=== PATIENT | male | born 1945 | race Caucasian/White ===

== ENCOUNTER 2017-08-28 22:35 | Inpatient (IN) | payer OTHER ==
[~2017-08-28] VITALS: Ht 177.8 cm; Wt 65.2 kg
--- NOTE | 2017-08-28 22:42 | ED GENERAL ADULT ---
History of Present Illness General Chief Complaint: General Adult Stated Complaint: BIBA FOR WEAKNESS Source: patient, family, old records, EMS Exam Limitations: no limitations Vital Signs & Intake/Output Vital Signs & Intake/Output Vital Signs Date Time Temp Pulse Resp B/P B/P Pulse O2 O2 Flow FiO2 Mean Ox Delivery Rate 08/28 2300 97.8 56 16 149/87 08/28 2237 97.8 56 16 149/87 97 Room Air Allergies Coded Allergies: NO KNOWN ALLERGIES (12/21/11) Triage Nurses Notes Reviewed? yes HPI: Patient brought in by ambulance for evaluation of frequent falls. Patient has fallen 4 times over the past 2 days. Patient states he just feels off balance. Patient is a chronic drinker and he drinks 8-10 beers daily however has not had anything to drink in the past day. Patient denies any nausea or vomiting. Patient denies any headache. There is no blurry vision. There is no nausea or vomiting. Family has noticed that he is slightly more confused than normal over the past few days. Past History Travel History Traveled to [place] past 21 day No Medical History Any Pertinent Medical History? see below for history Cardiovascular: hypertension Psychiatric: depression Surgical History Surgical History: non-contributory Psychosocial History Who do you live with Family What is your primary language Faroese Tobacco Use: Quit >30 days ago ETOH Use: 8-10 BEERS DAILY Illicit Drug Use: denies illicit drug use Family History Hx Contributory? No Review of Systems Review of Systems Constitutional: Reports: see HPI, weakness. EENTM: Reports: no symptoms. Respiratory: Reports: no symptoms. Cardiovascular: Reports: no symptoms. GI: Reports: no symptoms. Genitourinary: Reports: no symptoms. Musculoskeletal: Reports: no symptoms. Skin: Reports: no symptoms. Neurological/Psychological: Reports: see HPI, confusion. Hematologic/Endocrine: Reports: no symptoms. Immunologic/Allergic: Reports: no symptoms. All Other Systems: Reviewed and Negative Physical Exam Physical Exam General Appearance: well developed/nourished, alert, awake, anxious, moderate distress Head: evidence of injury, ecchymosis Eyes: Bilateral: PERRL, EOMI. Ears, Nose, Throat: normal pharynx, normal ENT inspection, hearing grossly normal Neck: normal inspection, supple, full range of motion Respiratory: normal breath sounds, chest non-tender, no respiratory distress, lungs clear Cardiovascular: regular rate/rhythm, normal peripheral pulses Gastrointestinal: normal bowel sounds, soft, non-tender, no organomegaly Back: normal inspection, normal range of motion Extremities: normal inspection, normal capillary refill, normal range of motion, ECCHYMOSIS Neurologic/Psych: no motor/sensory deficits, awake, alert, oriented x 3 Skin: intact, warm/dry Core Measures ACS in differential dx? No CVA/TIA Diagnosis: No Sepsis Present: No Sepsis Focused Exam Completed? No Progress Differential Diagnoses I considered the following diagnoses in my evaluation of the patient: [ICH, cervical fracture, pneumonia, pneumothorax, electrolyte abnormality, rhabdomyolysis, UTI, alcohol withdrawal] Plan of Care: Orders Procedure Date/time Status LACTIC ACID 08/29 0141 Active Admit to inpatient 08/28 2334 Active Add-on Test (ER Only) 08/28 232 Active CIWA 08/28 224 Active URINE DRUGS OF ABUSE 08/28 2240 Active URINALYSIS 08/28 224 Active TROPONIN LEVEL 08/28 224 Complete LACTIC ACID 08/28 224 Complete ETHANOL 08/28 2241 Complete COMPREHENSIVE METABOLIC PANEL 08/28 2240 Complete CREATINE PHOSPHOKINASE 08/28 2240 Complete CBC WITHOUT DIFFERENTIAL 08/28 2240 Complete EKG 08/28 2240 Active Current Medications Sig/Alissa Start time Last Medication Dose Stop Time Status Admin Sodium Chloride 1,000 ML BOLUS ONE 08/280 UNVr (Normal Saline 0.9%) 08/29 0029 Laboratory Tests 08/28/17 2254: Anion Gap 17 H, Estimated GFR > 60, BUN/Creatinine Ratio 35.7 H, Glucose 126 H, Lactic Acid 2.4 H, Calcium 9.5, Total Bilirubin 3.8 H, AST 46, ALT 44, Alkaline Phosphatase 65, Creatine Kinase 142, Troponin I 0.02, Total Protein 7.2 , Albumin 4.3, Globulin 2.9, Albumin/Globulin Ratio 1.5, CBC w Diff NO MAN DIFF REQ, RBC 5.23, MCV 96.4 H, MCH 33.1 H, MCHC 34.3, RDW 12.1, MPV 8.2, Gran % 77.5 H, Lymphocytes % 10.3 L, Monocytes % 11.6 H, Eosinophils % 0.5, Basophils % 0.1, Absolute Granulocytes 8.7 H, Absolute Lymphocytes 1.2, Absolute Monocytes 1.3 H, Absolute Eosinophils 0.1, Absolute Basophils 0, Serum Alcohol < 10.0 Diagnostic Imaging: Viewed by Me: Radiology Read, CT Scan. Discussed w/RAD: Radiology Read, CT Scan. Radiology Impression: PATIENT: KVNG TOMAS PRESENT AGE: 72 PATIENT ACCOUNT NO: [id number] : 44 LOCATION: [facility] ORDERING PHYSICIAN: Sukhwinder Brown MD SERVICE DATE: 08/28/17 EXAM TYPE: CAT - CT CERV SPINE WO IV CONTRAST; CT HEAD WO IV CONTRAST EXAMINATIONS: CT HEAD WITHOUT CONTRAST AND CT CERVICAL SPINE WITHOUT CONTRAST CLINICAL INFORMATION: Trauma. Frequent falls. COMPARISON: September 06, 2008. TECHNIQUE: Contiguous helical images of the brain were obtained without IV contrast. Contiguous helical images of the cervical spine were obtained without IV contrast. Multiplanar reconstructions were performed. DLP: 993 mGy-cm. FINDINGS: There are no pathologic extra-axial fluid collections. The lateral, third, fourth ventricles are prominent, though age-appropriate and concordant with the appearance of the sulci. There is no evidence for acute intraparenchymal hemorrhage or infarct. There is mild periventricular low-attenuation indicative small vessel disease. There is neither mass nor mass effect. There is no shift of midline structures. The paranasal sinuses and mastoid air cells are clear. There are no osseous lesions. The cervical vertebra are in normal alignment. There is mild disc height loss at C5/C6 and C6/C7 with anterior osteophyte formation. Disc heights and vertebral heights are otherwise well-preserved. There are no fractures. There is no prevertebral soft tissue swelling. There is no cervical lymphadenopathy. The visualized lung apices are clear. IMPRESSION: No evidence for acute intracranial injury. Age-appropriate appearance of the brain. No evidence for acute injury to the cervical spine. Mild lower cervical spine degenerative change. DICTATED BY: Kvng Whittington MD DATE/TIME DICTATED:08/28/172321 COOK BOX FILLER:MATILDA DATE/TIME TRANSCRIBED:08/28/172321 CONFIDENTIAL, DO NOT COPY WITHOUT APPROPRIATE AUTHORIZATION. <Electronically signed in Other Vendor System> SIGNED BY: Kvng Whittington MD 08/28/172328 CXR Impression: PATIENT: KVNG TOMAS PRESENT AGE: 72 PATIENT ACCOUNT NO: [id number] : 44 LOCATION: [facility] ORDERING PHYSICIAN: Sukhwinder Brown MD SERVICE DATE: 08/28/17 EXAM TYPE: RAD - XRY-CHEST XRAY, TWO VIEWS EXAMINATION: XR CHEST CLINICAL INFORMATION: Weakness. COMPARISON : Chest x-ray 09/06/2008 TECHNIQUE: Single view chest AP 11:07 PM FINDINGS: There is no nonunited fracture of the distal left clavicle. This is unchanged since prior chest x-ray. There is no acute abnormality. Lungs are clear. No pulmonary vascular congestion or pleural effusion. The cardiac and mediastinal contours are normal. The heart size is normal. IMPRESSION: No acute abnormality of chest. DICTATED BY: Gaurav Montes De Oca MD DATE/TIME DICTATED:08/28/172322 COOK BOX FILLER:MATILDA DATE/TIME TRANSCRIBED:08/28/172322 CONFIDENTIAL, DO NOT COPY WITHOUT APPROPRIATE AUTHORIZATION. <Electronically signed in Other Vendor System> SIGNED BY: Gaurav Montes De Oca MD 08/28/172327 Initial ED EKG: NSR, LBBB, nonspecific ST T wave chg Prior EKG: unchanged Departure Departure Disposition: STILL A PATIENT Condition: Guarded Clinical Impression Primary Impression: Hyponatremia Referrals: Sourav GEORGES,Christian Long (PCP/Family) Departure Forms: Customer Survey General Discharge Information Admission Note Spoke With: Vickie Quintanilla MD Documentation of Exam: Documentation of any treatments & extenuating circumstances including Concerns Regarding Discharge (functional status, medication knowledge or non-compliance, living conditions, etc.) that warrant an admission rather than observation: [ICU admission, free water restriction, renal consultation, physical therapy consultation, monitor CIWA score] Critical Care Note Critical Care Note Critical Care Time: mins: (90 MIN)
[2017-08-28 23:00] VITALS: BP 149/87
[2017-08-28 23:01] LABS: ABSOLUTE BASOPHIL COUNT 0 /CUMM (0.0-0.2); ABSOLUTE EOSINOPHIL COUNT 0.1 /CUMM (0.0-0.7); ABSOLUTE GRANULOCYTE CT 8.7 /CUMM (1.4-6.5); ABSOLUTE LYMPH COUNT 1.2 /CUMM (1.2-3.4); ABSOLUTE MONOCYTE COUNT 1.3 /CUMM (0.10-0.60); BASOPHIL % 0.1 % (0.0-2.0); EOSINOPHIL % 0.5 % (0-5); GRANULOCYTE % 77.5 % (42.2-75.2); HEMATOCRIT 50.5 % (42-52); MEAN CORPUSCULAR HGB 33.1 PG (27.0-31.0); MEAN CORPUSCULAR HGB CONC 34.3 G/DL (33.0-37.0); MEAN CORPUSCULAR VOLUME 96.4 FL (80.0-94.0); MEAN PLATELET VOLUME 8.2 FL (7.4-10.4); PLATELET COUNT 206 /CUMM (130-400); RBC DISTRIBUTION WIDTH 12.1 % (11.5-14.5); RED BLOOD CELL CT 5.23 /CUMM (4.70-6.10); WHITE BLOOD CELL COUNT 11.3 /CUMM (4.8-10.8)
--- NOTE | 2017-08-28 23:28 | RADIOLOGY REPORT ---
EXAMINATION: XR CHEST CLINICAL INFORMATION: Weakness. COMPARISON: Chest x-ray 09/06/2008 TECHNIQUE: Single view chest AP 11:07 PM FINDINGS: There is no nonunited fracture of the distal left clavicle. This is unchanged since prior chest x-ray. There is no acute abnormality. Lungs are clear. No pulmonary vascular congestion or pleural effusion. The cardiac and mediastinal contours are normal. The heart size is normal. IMPRESSION: No acute abnormality of chest.
--- NOTE | 2017-08-28 23:29 | CT SCAN REPORT ---
EXAMINATIONS: CT HEAD WITHOUT CONTRAST AND CT CERVICAL SPINE WITHOUT CONTRAST CLINICAL INFORMATION: Trauma. Frequent falls. COMPARISON: September 06, 2008. TECHNIQUE: Contiguous helical images of the brain were obtained without IV contrast. Contiguous helical images of the cervical spine were obtained without IV contrast. Multiplanar reconstructions were performed. DLP: 993 mGy-cm. FINDINGS: There are no pathologic extra-axial fluid collections. The lateral, third, fourth ventricles are prominent, though age-appropriate and concordant with the appearance of the sulci. There is no evidence for acute intraparenchymal hemorrhage or infarct. There is mild periventricular low-attenuation indicative small vessel disease. There is neither mass nor mass effect. There is no shift of midline structures. The paranasal sinuses and mastoid air cells are clear. There are no osseous lesions. The cervical vertebra are in normal alignment. There is mild disc height loss at C5/C6 and C6/C7 with anterior osteophyte formation. Disc heights and vertebral heights are otherwise well-preserved. There are no fractures. There is no prevertebral soft tissue swelling. There is no cervical lymphadenopathy. The visualized lung apices are clear. IMPRESSION: No evidence for acute intracranial injury. Age-appropriate appearance of the brain. No evidence for acute injury to the cervical spine. Mild lower cervical spine degenerative change.
[2017-08-28] MEDS ORDERED: PAROXETINE HCL20 M1 PO (23:39)
[2017-08-28] MEDS ORDERED: METOPROLOL SUC100 M2 PO (23:40)
[2017-08-28] MEDS ORDERED: VALSARTAN-HCTZ1 EAC2 PO (23:40)
[2017-08-28] MEDS ORDERED: BUSPIRONE HCL15 M1 PO (23:40)
[2017-08-28] MEDS ORDERED: LORAZEPAM0.5 M1 PO (23:40)
--- NOTE | 2017-08-28 23:54 | History & Physical ---
See Addendum Murali Barfield 08/28/17 2345: General Information and HPI MD Statement: I have seen and personally examined CONTRERAS TOMAS and documented this H&P. The patient is a 72 year old M who presented with a patient stated chief complaint of generalized weakness and confusion []. Source of Information: patient, family, old records, EMS History of Present Illness: 72 YO M, smoker (5 cigraettes/d for 50 yrs) with PMH of alcohol abuse, HTN and depression was brought to ED with chief complain of frequent fall in last two days and generalized weakness. Patient's friends and family was around him who helped him to give the information. According to the patient he was in his usual state of health 2 days ago when he started noticed generalized weakness and he fell down couple of times in his apartment. Patient reported that he has multiple bruises on both arms and also on the right foot. Patient's family friend and his landlord he was on the bedside who told that he helped him getting into the bed. He found him falling on this floor with blood on the clothes. According to the family for patient looks more confused. Patient reported that he is drinking 810 beers everyday for a long time. His last drink was 20 hours before. Patient reported that his appetite has been decreased and he didn't eat or drink anything for last 2 days. Also reported that he saw his primary care physician Dr. Donaldson on 23 of August who changed his antihypertensive medications and prescribed him paroxetine for depression. 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 Patient is independent in walking as he is not using any cane or walker. Patient denied chest pain, palpitation, nausea, vomiting, lightheadedness, abdominal pain, diarrhea, constipation, numbness, tingling, loss of consciousness, seizures, blurry vision, tremors and dysuria. According to the patient 1 time he tried to quit alcohol and was admitted in the hospital for alcohol detox. He never been admitted to the hospital protocol and if seizures or never been admitted to ICU or intubated for alcohol withdrawal. Last time he was admitted to the hospital in 2011 and 2008 with hyponatremia and was treated for it. ED course: Vitals: Temperature 97.8, pulse 56, respiratory rate 16, blood pressure 149/87, oxygen saturation 97% on room air Labs: WBC count 11.3, hemoglobin 17.3, hematocrit 50.5, platelet 206, sodium 110 , potassium 3.6, BUN 25, creatinine 0.7, chloride 69, bicarbonate 24, anion gap 17, BUNs/creatinine ratio 35.7, glucose 126, lactic acid 2.4, total bilirubin 3.8, AST 46, ALT 44, alkaline phosphatase 65, creatinine kinase 142, troponin 0.02, albumin 4.3, globulin 2.9, total primary 7.2 Patient received 1 L of normal saline in ED Allergies/Medications Allergies: Coded Allergies: NO KNOWN ALLERGIES (12/21/11) Home Med list Buspirone HCl 15 MG TABLET 1 TAB PO BID MENTAL HEALTH (Reported) Lorazepam 0.5 MG TABLET 1 TAB PO DAILY NEEDED ANXIETY (Reported) Metoprolol Succinate 100 MG TAB.ER.24H 1 TAB PO DAILY HEART HEALTH (Reported) Paroxetine HCl 20 MG TABLET 1 TAB PO DAILY MENTAL HEALTH (Reported) Valsartan/Hydrochlorothiazide (Valsartan-Hctz 160-25 MG Tab) 160 MG-25 MG TABLET 1 TAB PO DAILY HEART HEALTH (Reported) Past History Travel History Traveled to [facility] past 21 day No Medical History Cardiovascular: hypertension Psychiatric: depression Surgical History Surgical History: non-contributory Past Family/Social History Psychosocial History ETOH Use: 8-10 BEERS DAILY Illicit Drug Use: denies illicit drug use Review of Systems Review of Systems Constitutional: Reports: weakness. Denies: chills, fever. EENTM: Reports: no symptoms. Cardiovascular: Denies: chest pain, edema, palpitations, syncope. Respiratory: Denies: cough, orthopnea, short of breath, sputum production, wheezing. GI: Denies: abdominal pain, constipation, diarrhea, nausea, bloody stool, vomiting. Genitourinary: Denies: discharge, hematuria, pain. Musculoskeletal: Reports: see HPI. Skin: Reports: erythema, lesions. Neurological/Psychological: Reports: confusion. Denies: anxiety, depressed, headache, numbness, tingling, tremors. Hematologic/Endocrine: Reports: bruising. Exam & Diagnostic Data Last 24 Hrs of Vital Signs/I&O Vital Signs Date Time Temp Pulse Resp B/P B/P Pulse O2 O2 Flow FiO2 Mean Ox Delivery Rate 08/28 2300 97.8 56 16 149/87 08/28 2237 97.8 56 16 149/87 97 Room Air Intake & Output 08/29 0800 08/29 0000 08/28 1600 Intake Total 1000 Output Total Balance 1000 Intake, IV 1000 Patient 135 lb Weight Physical Exam General Appearance Alert, Cooperative, No Acute Distress Skin No Rashes Skin Temp/Moisture Exam: Warm/Dry Sepsis Skin Exam (color): Normal for Ethnicity HEENT Atraumatic, PERRLA, EOMI Neck Supple Cardiovascular Normal S1, Normal S2 Lungs Clear to Auscultation, Normal Air Movement Abdomen Soft, No Tenderness Neurological Normal Speech, Strength at 5/5 X4 Ext, Normal Tone, Sensation Intact Extremities No Edema, Bruises of right arm and hand, bruises on left arm, Right foot swelling and redness Assessment/Plan Assessment: 72 YO M, smoker (5 cigraettes/d for 50 yrs) with PMH of alcohol abuse, HTN and depression was brought to ED with chief complain of frequent fall in last two days and generalized weakness. Patient's friends and family was around him who helped him to give the information. We will admit the patient in ICU to treat for hyponatremia. Hyponatremia: -Possibly due to SIADH that can be induced with Paroxetine or could be multifactorial due to SIADH and dehydration as patient was using diuretics and he had low oral intake. 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 -Gentle IV hydration with normal saline. We will check his sodium level in 4 hours and if it's dropped with IV hydration then we will treat him for SIADH with fluid restriction. -We will check sodium level after every 4 hours. Na correction should not be more than 8-10 mEQ in next 24 hours. -We will avoid diuretics and paroxetine -Patient couldn't get with fluid restriction then we will do 3% normal saline. -Seizure precaution -Nephrology consult Alcohol detox: -We will keep the patient on CIWA protocol -Ativan 2mg every 6 hourly -Folic acid and vitamin B12 supplementation -Thiamine supplementation -Seizure precautions -Fall precaution -Social consult and PT eval for gait instability Hyperbilirubinemia: -Possibly due to alcohol abuse, considering normal liver enzymes may has compensated liver cirrhosis due to alcohol use. -We will check bili level again. -Upper quadrent USG can be done to look for his liver. Elevated hemoglobin and hematocrit: -Possibly due to secondary polycythemia considering his long smoking history. Right foot swelling: -Patient has right foot swelling and redness after the fall -X-ray right foot to rule out any fracture History of anxiety and depression: -Continue Ativan when necessary -Continue buspiron for depression History of hypertension: -Continue metoprolol and losartan DVT prophylaxis: Mechanical and subcutaneous heparin Code status: Full code As Ranked By This Provider Problem List: 1. Hyponatremia 2. Alcohol abuse Core Measures/Misc (11/19) Acute Coronary Syndrome ACS Diagnosis: No Congestive Heart Failure Congestive Heart Failure Diagnosis No Cerebrovascular Accident CVA/TIA Diagnosis: No VTE (View Protocol) VTE Risk Factors Age>40 No Mechanical VTE Prophylaxis d/t N/A MechProphylax Ordered No VTE Pharm Prophylaxis d/t NA PharmProphylax ordered Sepsis (View protocol) Sepsis Present: No If YES complete Sepsis Event Note If YES complete Sepsis Event Note Garo Mae MD 08/29/17 0003: Core Measures/Misc (11/19) Sepsis (View protocol) If YES complete Sepsis Event Note If YES complete Sepsis Event Note Resident Review Statement Other Findings: History of Present Illness 72 year old man with past medical history of EtOH abuse, hypertension, depression, and panic attacks brought in by ambulance for altered mental status and multiple mechanical falls. Patient was previoulsy admitted to [facility] in 2008 for similar complaints where he was admitted to the ICU for profound hyponatremia of 119, K 3.0, Plt 65 where nephro consult was placed and he was placed on 1200 cc fluid restriction and treated for SIADH versus beer potomania which was slowly corrected. Patient has been reported progressively more confused over the past several days. He has had multiple mechanical falls resulting in minor injuries. He has had decreased PO intake and has not been taking his medications. He was found by his landlord with blood all over the apartment. He reported profound weakness and nausea. Review of Systems He otherwise denies any fever, chills, blurred / double vision, chest pain, palpitations, heartburn, shortness of breath, cough, nausea, vomiting, diarrhea, constipation, urinary symptoms. Social history Patient reportedly drinks 8-14 beers per day for the past 50 years, last drink was around 20 hours prior to admission. He smokes on average 5 cigarettes per day now but in the past smoked up to 2 packs per day. He reportedly does not use any recreational drugs such as marijuana or cocaine. He lives alone in an "in-law" apartment attached to a friend's home and is at baseline independent in all ADLs/IADLs. Objective Vitals Temp 97.8, HR 56, RR 16, BP 149/87, spO2 97% on room air Physical Exam -General: unkempt elderly man in no acute distress -HEENT: Scattered minor traumas without deformity, PERRLA, EOMI, anicteric sclera, moist mucous membrane -Neck: Supple, no JVD, trachea midline, no accessory respiratory muscle use -Cardio: Normal S1/S2 without murmurs/gallops/rubs; regular rate and rhythm -Pulm: Scattered rhonchi with expiratory wheezing -Abdomen: Soft, nontender, nondistended, bowel sounds intact -Neuro: Awake and minimally alert but slow to respond with inappropriate responses, cranial nerves II through XII grossly intact, spontaneous movement of all 4 extremities -Extremities: Normal pulses, ecchymotic area to right ankle without deformity, strength 5/54 Labs / Imaging / Studies -CBC: WBC 11.3, HGB 17, HCT 50.3, PLT 206 -BMP: Na 110, K 3., CL 69, CO2 24, BUN 25, Creatinine 0.7, AG 17, Glu 126 -LFT: T. Bili 3.8, otherwise normal -Misc: Lactic 2.4, Troponin negative, EtOH < 10 -CXR: unremarkable -EKG: NSR -CT Head / C-spine without IV Contrast: * No evidence for acute intracranial injury. Age-appropriate appearance of the brain. No evidence for acute injury to the cervical spine. Mild lower cervical spine degenerative change. Assessment 72 year old man with multiple medical problems significant for alcohol abuse brought in by ambulance for multiple falls and altered mental status. Presently patient appears somewhat confused but in no acute distress. Vital signs remain within normal limits. Physical exam reveals an elderly man with poor hygiene with various sites of small injury around his body at impact areas from his mechanical falls and an otherwise unremarkable cardiopulmonary examination; his right ankle looks ecchymotic and bruised without any gross deformity. Labs are significant for WBC 11.3, hemoglobin 17.3, hematocrit 50.3, sodium 110, potassium 3.6, lactic acid 2.4, anion gap 17; troponin and EtOH levels are negative. EKG demonstrated a normal sinus rhythm with a nonspecific interventricular conduction delay. CT head and cervical spine was negative for any acute intracranial injury or cervical spine injury. Patient received 1 L of normal saline in the ED. Clinically patient appears to have severe hyponatremia likely multifactorial in etiology secondary to SIADH and beer potomania and possibly paroxetine as it is a new med. Patient's gait instability is most likely secondary to these findings for which she will be evaluated with physical therapy assessment and monitored closely as he is a fall risk. Patient is at high risk for for central pontine myelinolysis given his multiple medical comorbidities and should have his sodium corrected very slowly. Patient is being admitted to the intensive care unit for serial serum chemistries, fluid restriction, nephrology consultation, and CIWA scoring with Ativan scheduled doses and vitamin supplements. Problem List -Altered mental status, likely multifactorial -Hyponatremia, Beer potomania versus SIADH -Anion gap metabolic acidosis -Multiple mechanical falls -History of EtOH abuse -Hypertension -"Panic Attacks" -History of urinary incontinence Plan -Admit to ICU -Telemetry monitoring -Strict Ins & Outs -CIWA -Fall / Seizure precautions -Start D5 water if sodium begins to overcorrect -Ativan 2 mg PO Q6H -Ativan PRN per CIWA -Thiamine/folate/multivitamin -Hold HCTZ and paroxetine for hyponatremia/SIADH -Continue home meds: Buspirone, metoprolol, valsartan -Consult with nephrology for hyponatremia -Consult with social work for outpatient alcohol program -PT evaluation for gait disturbance -Follow up UA, UTox, U lytes -Trend lactic acid until normal -Obtain right foot x-ray -BMP Q4H, avoid overcorrection of Na by more than 8 mEq in 24 hours -Pain control with acetaminophen -Regular Diet with 1200 cc fluid restriction -DVT PPx with subcutaneous heparin -FULL CODE Eusebio GEORGES,David 08/29/17 0903: Core Measures/Misc (11/19) Sepsis (View protocol) If YES complete Sepsis Event Note If YES complete Sepsis Event Note
[2017-08-29] VITALS (9 sets, daily range): BP systolic 131–190; BP diastolic 62–97
[2017-08-29 05:57] LABS: ABSOLUTE BASOPHIL COUNT 0 /CUMM (0.0-0.2); ABSOLUTE EOSINOPHIL COUNT 0.1 /CUMM (0.0-0.7); ABSOLUTE GRANULOCYTE CT 6.7 /CUMM (1.4-6.5); ABSOLUTE LYMPH COUNT 1.2 /CUMM (1.2-3.4); ABSOLUTE MONOCYTE COUNT 1.2 /CUMM (0.10-0.60); BASOPHIL % 0.4 % (0.0-2.0); EOSINOPHIL % 0.8 % (0-5); GRANULOCYTE % 72.9 % (42.2-75.2); MEAN CORPUSCULAR HGB 33.6 PG (27.0-31.0); MEAN CORPUSCULAR HGB CONC 34.7 G/DL (33.0-37.0); MEAN CORPUSCULAR VOLUME 96.8 FL (80.0-94.0); MEAN PLATELET VOLUME 7.9 FL (7.4-10.4); PLATELET COUNT 173 /CUMM (130-400); RBC DISTRIBUTION WIDTH 12.3 % (11.5-14.5); RED BLOOD CELL CT 4.55 /CUMM (4.70-6.10); WHITE BLOOD CELL COUNT 9.2 /CUMM (4.8-10.8)
--- NOTE | 2017-08-29 07:38 | Cons- CRCU ---
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 He is alert, oriented and seems improved this morning, enough to provide a reliable midical history. He mentions that he takes his meds regularly, including thiazide, and eats at least his dinner daily and his lunch on most days. He has been drinking alcohol (beer) as frequently as mentioned above, and his last drink was two days ago. He also has been drinkning water quite often ( not quantified) recently. Although he is a chronic smoker, he denies chronic cough, recent weight changes, no confusion, or fever/chills, vision changes, shortness of breath, diarrhea, vomiting, jaundice, hematuria, seizure, or other symptoms. Allergies/Medications Allergies: Coded Allergies: NO KNOWN ALLERGIES (12/21/11) Home Med List: Buspirone HCl 15 MG TABLET 1 TAB PO BID MENTAL HEALTH (Reported) Lorazepam 0.5 MG TABLET 1 TAB PO DAILY NEEDED ANXIETY (Reported) Metoprolol Succinate 100 MG TAB.ER.24H 1 TAB PO DAILY HEART HEALTH (Reported) Paroxetine HCl 20 MG TABLET 1 TAB PO DAILY MENTAL HEALTH (Reported) Valsartan/Hydrochlorothiazide (Valsartan-Hctz 160-25 MG Tab) 160 MG-25 MG TABLET 1 TAB PO DAILY HEART HEALTH (Reported) Current Medications: Current Medications Sig/Alissa Start time Last Medication Dose Route Stop Time Status Admin Acetaminophen 650 MG Q6P PRN 08/29 0100 AC PO Buspirone HCl 15 MG BID 08/29 0900 AC PO Folic Acid 1 MG DAILY 08/29 0900 AC PO Heparin Sodium 5,000 UNIT Q8 08/29 0600 AC 08/29 (Porcine) SC 0621 Lorazepam 0 Q1P PRN 08/29 0115 AC IV Lorazepam 2 MG Q6 08/29 0106 AC PO Losartan Potassium 50 MG DAILY 08/29 899 AC PO Metoprolol Succinate 100 MG DAILY 08/29 899 AC PO Multivitamins 1 TAB DAILY 08/29 899 AC PO Potassium Chloride 20 MEQ ONCE ONE 08/29 629 CAN IV 08/29 630 Potassium Chloride 10 MEQ ONCE ONE 08/29 629 DC 08/29 IV 08/29 630 0633 Potassium Chloride 10 MEQ ONCE ONE 08/29 629 DC IV 08/29 630 Potassium Chloride 40 MEQ ONCE ONE 08/295 DC 08/29 PO 08/30 315 031 Sodium Chloride 1,000 ML BOLUS ONE 08/28 2330 DC 08/28 IV 08/29 0029 2341 Thiamine HCl 100 MG DAILY 08/29 899 AC PO Review of Systems Review of Systems Constitutional: Reports: see HPI, weakness. EENTM: Reports: no symptoms. Cardiovascular: Reports: no symptoms. Respiratory: Reports: no symptoms. GI: Reports: no symptoms. Genitourinary: Reports: no symptoms. Musculoskeletal: Reports: no symptoms. Skin: Reports: no symptoms. Neurological/Psychological: Reports: see HPI, confusion (now better already). Hematologic/Endocrine: Reports: no symptoms. All Other Systems: Reviewed and Negative Past History Travel History Traveled to [place] past 21 day No Medical History Blood Transfusion Hx: No Neurological: NONE EENT: NONE Cardiovascular: hypertension Respiratory: NONE Gastrointestinal: NONE Hepatic: NONE Renal: NONE Musculoskeletal: NONE Psychiatric: depression, substance abuse Endocrine: NONE Blood Disorders: NONE Cancer(s): NONE Surgical History Surgical History: non-contributory Psychosocial History Where Do You Live? Home Who Do You Live With? child (15 yr old daughter), friend/landlord Ajit Services at Home: None Primary Language: Swazi Smoking Status: Current Everyday Smoker ETOH Use: 8-10 BEERS DAILY Illicit Drug Use: denies illicit drug use Functional Ability ADLs Independent: dressing, eating, toileting, bathing. Ambulation: independent IADLs Independent: shopping, housework, finances, food prep, telephone, transportation , medication admin. Exam & Diagnostic Data Last 24 Hrs of Vital Signs/I&O Vital Signs Date Time Temp Pulse Resp B/P B/P Pulse O2 O2 Flow FiO2 Mean Ox Delivery Rate 08/29 599 97.6 62 23 131/67 08/29 0400 97.6 62 25 152/88 08/29 0400 98 Room Air 08/29 0100 95 Room Air 08/29 0032 97.7 58 18 185/87 98 Room Air 08/28 2300 97.8 56 16 149/87 08/28 2237 97.8 56 16 149 97 Room Air Intake & Output 08/29 0800 08/29 0000 08/28 1600 Intake Total 120 1000 Output Total 450 Balance -330 1000 Intake, IV 0 1000 Intake, Oral 120 Number 0 Bowel Movements Output, Urine 450 Patient 65.2 kg 61.235 kg Weight Weight Bed scale Measurement Method Physical Exam General Appearance: no apparent distress, alert, awake, comfortable Other Physical Findings: Skin No Rashes Skin Temp/Moisture Exam: Warm/Dry HEENT Atraumatic, PERRLA, EOMI, normal mucosa Neck Supple Cardiovascular Normal S1, Normal S2 Lungs Clear to Auscultation, Normal Air Movement b/l Abdomen Soft, No Tenderness Neurological Grossly intact, no visual field defect Extremities No Edema, trace edema if at all b/l Last 48 Hrs of Labs/Han: Laboratory Tests 08/29/17 0547: Anion Gap 13, Estimated GFR > 60, BUN/Creatinine Ratio 36.7 H, CBC w Diff NO MAN DIFF REQ, RBC 4.55 L, MCV 96.8 H, MCH 33.6 H, MCHC 34.7, RDW 12.3, MPV 7.9, Gran % 72.9, Lymphocytes % 12.7 L, Monocytes % 13.2 H, Eosinophils % 0.8, Basophils % 0.4, Absolute Granulocytes 6.7 H, Absolute Lymphocytes 1.2, Absolute Monocytes 1.2 H, Absolute Eosinophils 0.1, Absolute Basophils 0 08/29/17 0239: Anion Gap 14, Estimated GFR > 60, BUN/Creatinine Ratio 38.3 H 08/29/17 0123: Urinalysis MOD H, Urine Color YEL, Urine Clarity HAZY H, Urine pH 6.0, Ur Specific [place] 1.020, Urine Protein NEG, Urine Ketones 15 H, Urine Nitrite NEG, Urine Bilirubin NEG@ICTO, Urine Urobilinogen 4.0 H, Ur Leukocyte Esterase NEG, Ur Microscopic SEDIMENT EXAMINED, Urine RBC 3-5, Urine WBC 1-3 H, Ur Epithelial Cells FEW, Urine Crystals , Urine Bacteria FEW H, Urine Mucus MOD H, Urine Hemoglobin TRACE-INTACT H, Urine Glucose NEG 08/29/17 0123: Urine Opiates Screen < 100, Methadone Screen < 40, Barbiturate Screen < 60, Ur Phencyclidine Scrn < 6.00, Amphetamines Screen < 100, U Benzodiazepines Scrn < 85, Urine Cocaine Screen < 50, Urine Cannabis Screen < 5.00, Urine Osmolality 632, Ur Random Creatinine 103.3, Ur Random Sodium 36, Ur Random Potassium 60.7, Fraction Sodium Excret 0.2 08/29/17 0120: Lactic Acid 1.3 08/28/17 2254: Anion Gap 17 H, Estimated GFR > 60, BUN/Creatinine Ratio 35.7 H, Glucose 126 H, Serum Osmolality 239 L, Lactic Acid 2.4 H, Calcium 9.5, Magnesium 1.9, Total Bilirubin 3.8 H, AST 46, ALT 44, Alkaline Phosphatase 65, Creatine Kinase 142, Troponin I 0.02, Total Protein 7.2, Albumin 4.3, Globulin 2.9, Albumin/ Globulin Ratio 1.5, CBC w Diff NO MAN DIFF REQ, RBC 5.23, MCV 96.4 H, MCH 33.1 H, MCHC 34.3, RDW 12.1, MPV 8.2, Gran % 77.5 H, Lymphocytes % 10.3 L, Monocytes % 11.6 H, Eosinophils % 0.5, Basophils % 0.1, Absolute Granulocytes 8.7 H, Absolute Lymphocytes 1.2, Absolute Monocytes 1.3 H, Absolute Eosinophils 0.1, Absolute Basophils 0, Serum Alcohol < 10.0 Diagnostic Data CXR Results No acute abnormality of the chest noted by the report. On personal review of the images, the film appears rotated, thus ? Falsely widening mediastinum. Other Results CAT scan of the head does not show any acute changes, no pituitary changes. Cervical spine has degenerative changes. 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 In the ED, he was found to be hyponatremic at 110, received 1 L of normal saline , and a repeat check showed Na of 114. The patient was placed on fluid restriction, and a nephrology consultation was placed. For closer observation, he was admitted to the ICU. Patient is currently being treated in the ICU for the following issues: RESPIRATORY #Chronic smoker, no issues currently -Patient might benefit from LDCT as out-patient. INFECTIOUS DISEASE No issues CARDIOLOGY #HTN -No issues HEMATOLOGY #No issues (no anemia, thrombocytopenia) METABOLIC #Hyponatremia, likely SIADH The patient presented with weakness,, in the setting of chronic alcohol use, thiazide use, drinking "lots of" water. His serum osmolality is low, and his urine osmolality is high, (5 function/cortisol normal) suggestive of SIADH. Given his history is chronic smoker, chest x-ray was done to look for any signs of tumor, which currently he doesn't have. When she would probably benefit from an outpatient low-dose CAT scan of the chest for screening lung cancer. Patient has been explained about it and agrees. -Continue ICU care with frequent (q4h) Na for now -Appreciate Nephrology consult -Will start 600 mL fluid restriction and Na tables ALIMENTARY #Elevated liver enzyme -Get viral hepatitis panel, as this is lso a possibiility. US liver to see if he has cirrhosis. NEPHROLOGY #Hyponatremia, as mentioned above NEUROLOGY #Hyponatremia, as mentioned above CHRONIC ISSUES OTHERWISE: MISC: Diet: 1200 ml restricted heart healthy diet DVT prophylaxis: SQ Heparin Code status: Full code IV access: Peripheral Case management issues:- Family update: Patient informed that he just spoke with his family members and was happy, requesting not to update anyone without his permission. Consult Acknowledgment - Thank you for your consult request. David Kaplan MD 08/29/17 0905: Assessment/Plan CRCU Other Findings/Comments: Impression 72 year old man * hyponatremia in the setting of etoh dependence Plan -abd usg -renal appreciated -fluid restriction, sodium tabs -check phos, coags -can benefit from LDCT as outpt DVT prophylaxis at all times TTS 35 min Consult Acknowledgment - Thank you for your consult request.
--- NOTE | 2017-08-29 09:09 | Cons- Nephrology ---
General Information and HPI Consulting Request Date of Consult: 08/29/17 Requested By: Vickie Quintanilla MD Reason for Consult: Hyponatremia Source of Information: patient, old records Exam Limitations: no limitations History of Present Illness: 72 yr old WM w hx HTN, EtOH abuse, & chronic hypontaremia admit last night after fall at home w generalized weakness & confusion. Long hx hyponatremia & found serum Na 110. On outpt thiazide diuretic & given IV NS bolus w Na rise 114. Admits to beer & water ingestion. Denies nausea or vomiting. Smoker but no cough or SOB. On SSRI but no record any opiates. No record any sz. Allergies/Medications Allergies: Coded Allergies: NO KNOWN ALLERGIES (12/21/11) Home Med List: Buspirone HCl 15 MG TABLET 1 TAB PO BID MENTAL HEALTH (Reported) Lorazepam 0.5 MG TABLET 1 TAB PO DAILY NEEDED ANXIETY (Reported) Metoprolol Succinate 100 MG TAB.ER.24H 1 TAB PO DAILY HEART HEALTH (Reported) Paroxetine HCl 20 MG TABLET 1 TAB PO DAILY MENTAL HEALTH (Reported) Valsartan/Hydrochlorothiazide (Valsartan-Hctz 160-25 MG Tab) 160 MG-25 MG TABLET 1 TAB PO DAILY HEART HEALTH (Reported) Current Medications: Current Medications Sig/Alissa Start time Last Medication Dose Route Stop Time Status Admin Acetaminophen 650 MG Q6P PRN 08/29 0100 AC PO Buspirone HCl 15 MG BID 08/29 0900 AC 08/29 PO 0838 Folic Acid 1 MG DAILY 08/29 0900 AC 08/29 PO 0838 Heparin Sodium 5,000 UNIT Q8 08/29 0600 AC 08/29 (Porcine) SC 0621 Lorazepam 0 Q1P PRN 08/29 0115 AC IV Lorazepam 2 MG Q6 08/29 0106 AC PO Losartan Potassium 50 MG DAILY 08/29 0900 AC 08/29 PO 0838 Metoprolol Succinate 100 MG DAILY 08/29 0900 AC 08/29 PO 0839 Multivitamins 1 TAB DAILY 08/29 0900 AC 08/29 PO 0838 Potassium Chloride 20 MEQ ONCE ONE 08/29 0630 CAN IV 08/29 0631 Potassium Chloride 10 MEQ ONCE ONE 08/29 0630 DC 08/29 IV 08/29 0631 0633 Potassium Chloride 10 MEQ ONCE ONE 08/29 0530 DC 08/29 IV 06/27 0631 0745 Potassium Chloride 40 MEQ ONCE ONE 08/29 0315 DC 08/29 PO 08/29 0316 0316 Sodium Chloride 3,000 MG TID 08/29 09 AC PO Sodium Chloride 1,000 ML BOLUS ONE 08/28 2330 DC 08/28 IV 08/29 0029 2341 Thiamine HCl 100 MG DAILY 08/29 09 AC 08/29 PO 0838 Review of Systems Review of Systems Constitutional: Reports: no symptoms, weakness. EENTM: Reports: no symptoms. Cardiovascular: Reports: no symptoms. Respiratory: Reports: no symptoms. GI: Reports: no symptoms. Genitourinary: Reports: no symptoms. Musculoskeletal: Reports: no symptoms. Skin: Reports: no symptoms. Neurological/Psychological: Reports: no symptoms. Hematologic/Endocrine: Reports: no symptoms. Immunologic/Allergic: Reports: no symptoms. All Other Systems: Reviewed and Negative Past History Travel History Traveled to [place] past 21 day No Medical History Blood Transfusion Hx: No Neurological: NONE EENT: NONE Cardiovascular: hypertension Respiratory: NONE Gastrointestinal: NONE Hepatic: NONE Renal: NONE Musculoskeletal: NONE Psychiatric: depression, substance abuse Endocrine: NONE Blood Disorders: NONE Cancer(s): NONE Surgical History Surgical History: non-contributory Family History Relations & Conditions If Any: Family history was reviewed; no changes noted. Psychosocial History Where Do You Live? Home Smoking Status: Current Everyday Smoker ETOH Use: 8-10 BEERS DAILY Illicit Drug Use: denies illicit drug use Exam & Diagnostic Data Vital Signs and I&O Vital Signs Date Time Temp Pulse Resp B/P B/P Pulse O2 O2 Flow FiO2 Mean Ox Delivery Rate 08/29 0839 58 142/78 08/29 0838 58 142/78 08/29 0600 97.6 62 23 131/67 08/29 0400 97.6 62 25 152/88 08/29 0400 98 Room Air 08/29 0100 95 Room Air 08/29 0032 97.7 58 18 185/87 98 Room Air 08/28 2300 97.8 56 16 149/87 08/28 2237 97.8 56 16 149/87 97 Room Air Intake & Output 08/29 1600 08/29 0400 08/28 1600 08/28 0400 08/27 1600 08/27 0400 Intake Total 120 1000 Output Total 450 Balance -330 1000 Intake, IV 0 1000 Intake, Oral 120 Number 0 Bowel Movements Output, Urine 450 Patient 144 lb Weight Weight Bed scale Measurement Method Physical Exam General Appearance: well developed/nourished, no apparent distress, alert Head: atraumatic, normal appearance Eyes: Bilateral: normal appearance. 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 tested, no asterixis Cranial Nerves: normal speech Skin: intact, normal color Lymphatic: no anterior cervical latanya, no axil adenopathy Results Pertinent Lab Results: Laboratory Tests 08/29 08/29 0547 0239 Chemistry Sodium (137 - 145 mmol/L) 114 *L 114 *L Potassium (3.5 - 5.1 mmol/L) 3.0 L 3.3 L Chloride (98 - 107 mmol/L) 76 L 76 L Carbon Dioxide (22 - 30 mmol/L) 25 24 Anion Gap (5 - 16) 13 14 BUN (9 - 20 mg/dL) 22 H 23 H Creatinine (0.7 - 1.2 mg/dL) 0.6 L 0.6 L Estimated GFR (>60 ml/min) > 60 > 60 BUN/Creatinine Ratio (7 - 25 %) 36.7 H 38.3 H TSH (0.270 - 4.200 uIU/mL) Pending Free T4 (0.78 - 2.44 ng/dL) 2.42 Cortisol AM Sample (4.46 - 22.7 ug/dL) Pending Hematology CBC w Diff NO MAN DIFF REQ WBC (4.8 - 10.8 /CUMM) 9.2 RBC (4.70 - 6.10 /CUMM) 4.55 L Hgb (14.0 - 18.0 G/DL) 15.3 Hct (42 - 52 %) 44.0 MCV (80.0 - 94.0 FL) 96.8 H MCH (27.0 - 31.0 PG) 33.6 H MCHC (33.0 - 37.0 G/DL) 34.7 RDW (11.5 - 14.5 %) 12.3 Plt Count (130 - 400 /CUMM) 173 MPV (7.4 - 10.4 FL) 7.9 Gran % (42.2 - 75.2 %) 72.9 Lymphocytes % (20.5 - 51.1 %) 12.7 L Monocytes % (1.7 - 9.3 %) 13.2 H Eosinophils % (0 - 5 %) 0.8 Basophils % (0.0 - 2.0 %) 0.4 Absolute Granulocytes (1.4 - 6.5 /CUMM) 6.7 H Absolute Lymphocytes (1.2 - 3.4 /CUMM) 1.2 Absolute Monocytes (0.10 - 0.60 /CUMM) 1.2 H Absolute Eosinophils (0.0 - 0.7 /CUMM) 0.1 Absolute Basophils (0.0 - 0.2 /CUMM) 0 08/29 08/29 08/29 0123 0123 0120 Chemistry Lactic Acid (0.7 - 2.1 mmol/L) 1.3 Toxicology Urine Opiates Screen (>2000 NG/ML) < 100 Methadone Screen (>300 NG/ML) < 40 Barbiturate Screen (>200 NG/ML) < 60 Ur Phencyclidine Scrn (>25 NG/ML) < 6.00 Amphetamines Screen (>1000 NG/ML) < 100 U Benzodiazepines Scrn (>200 NG/ML) < 85 Urine Cocaine Screen (>300 NG/ML) < 50 Urine Cannabis Screen (>50 NG/ML) < 5.00 Urines Urinalysis MOD H Urine Color (YEL,AMB,STR) YEL Urine Clarity (CLEAR) HAZY H Urine pH (5.0 - 8.0) 6.0 Ur Specific [place] (1.001 - 1.035) 1.020 Urine Protein (NEG,<30 MG/DL) NEG Urine Ketones (NEG) 15 H Urine Nitrite (NEG) NEG Urine Bilirubin (NEG) NEG@ICTO Urine Urobilinogen (0.1 - 1.0 EU/dl) 4.0 H Ur Leukocyte Esterase (NEG) NEG Ur Microscopic SEDIMENT EXAMINED Urine RBC (0 - 5 /HPF) 3-5 Urine WBC (0 - 2 /HPF) 1-3 H Ur Epithelial Cells (NONE,FEW) FEW Urine Crystals Urine Bacteria (NEG/NONE) FEW H Urine Mucus (FEW,NONE) MOD H Urine Hemoglobin (NEG) TRACE-INTACT H Urine Osmolality (300 - 1000 MOSM/KG) 632 Ur Random Creatinine (mg/dL) 103.3 Ur Random Sodium (30 - 90 mmol/L) 36 Ur Random Potassium (mmol/L) 60.7 Fraction Sodium Excret (<1% %) 0.2 Urine Glucose (N MG/DL) NEG 08/28 2254 Chemistry Sodium (137 - 145 mmol/L) 110 *L Potassium (3.5 - 5.1 mmol/L) 3.6 Chloride (98 - 107 mmol/L) 69 L Carbon Dioxide (22 - 30 mmol/L) 24 Anion Gap (5 - 16) 17 H BUN (9 - 20 mg/dL) 25 H Creatinine (0.7 - 1.2 mg/dL) 0.7 Estimated GFR (>60 ml/min) > 60 BUN/Creatinine Ratio (7 - 25 %) 35.7 H Glucose (65 - 99 mg/dL) 126 H Serum Osmolality (285 - 295 MOSM/KG) 239 L Lactic Acid (0.7 - 2.1 mmol/L) 2.4 H Calcium (8.4 - 10.2 mg/dL) 9.5 Magnesium (1.6 - 2.3 mg/dL) 1.9 Total Bilirubin (0.2 - 1.3 mg/dL) 3.8 H AST (17 - 59 U/L) 46 ALT (21 - 72 U/L) 44 Alkaline Phosphatase (< 127 U/L) 65 Creatine Kinase (55 - 170 U/L) 142 Troponin I (<0.11 ng/ml) 0.02 Total Protein (6.3 - 8.2 g/dL) 7.2 Albumin (3.5 - 5.0 g/dL) 4.3 Globulin (1.9 - 4.2 gm/dL) 2.9 Albumin/Globulin Ratio (1.1 - 2.2 %) 1.5 Hematology CBC w Diff NO MAN DIFF REQ WBC (4.8 - 10.8 /CUMM) 11.3 H RBC (4.70 - 6.10 /CUMM) 5.23 Hgb (14.0 - 18.0 G/DL) 17.3 Hct (42 - 52 %) 50.5 MCV (80.0 - 94.0 FL) 96.4 H MCH (27.0 - 31.0 PG) 33.1 H MCHC (33.0 - 37.0 G/DL) 34.3 RDW (11.5 - 14.5 %) 12.1 Plt Count (130 - 400 /CUMM) 206 MPV (7.4 - 10.4 FL) 8.2 Gran % (42.2 - 75.2 %) 77.5 H Lymphocytes % (20.5 - 51.1 %) 10.3 L Monocytes % (1.7 - 9.3 %) 11.6 H Eosinophils % (0 - 5 %) 0.5 Basophils % (0.0 - 2.0 %) 0.1 Absolute Granulocytes (1.4 - 6.5 /CUMM) 8.7 H Absolute Lymphocytes (1.2 - 3.4 /CUMM) 1.2 Absolute Monocytes (0.10 - 0.60 /CUMM) 1.3 H Absolute Eosinophils (0.0 - 0.7 /CUMM) 0.1 Absolute Basophils (0.0 - 0.2 /CUMM) 0 Toxicology Serum Alcohol (<10 MG/DL) < 10.0 Imaging/Other Studies: EXAM TYPE: RAD - XRY-CHEST XRAY, TWO VIEWS EXAMINATION: XR CHEST CLINICAL INFORMATION: Weakness. COMPARISON: Chest x-ray 09/06/2008 TECHNIQUE: Single view chest AP 11:07 PM FINDINGS: There is no nonunited fracture of the distal left clavicle. This is unchanged since prior chest x-ray. There is no acute abnormality. Lungs are clear. No pulmonary vascular congestion or pleural effusion. The cardiac and mediastinal contours are normal. The heart size is normal. IMPRESSION: No acute abnormality of chest. CT: IMPRESSION: No evidence for acute intracranial injury. Age-appropriate appearance of the brain. No evidence for acute injury to the cervical spine. Mild lower cervical spine degenerative change. Assessment/Plan Assessment/Recommendations Assessment: 1. Hyponatremia: severe but chronic w minimal current sx; likely thiazide induced w excess free water intake. Can not make dx SIADH in current setting but has risk factors w SSRI use & smoking hx. Needs adrenal insufficiency & hypothyroidism excluded but doubt. Underlying cirrhosis w defect free water excretion can't be excluded w EtOH hx & elevated TBili. Therpaeutically, no indication for hypertonic saline or V2 receptor blockade. Needs strict fluid restriction & volume expansion w po NaCl tabs targeting Na rise low 120s over next 24 hrs. Need to watch for rapid correction since at risk for central demyelinating syndrome. 2. Hypokalemia: due to thiazide & prob poor po intake. Needs K replacement po 3. Ketoacidosis: mild; elevated AG w + urine ketones on admit --> prob EtOH associated & improved w falling AG 4. HyperBili: ? EtOH related --> needs biliary tract US & repeat LFTs w direct Bili Recommendations: 1. dry diet from kitchen 2. 600 ml fluid restriction/day 3. po KCl replacement rather than IV 4. NaCl 3 grams po tid 5. q4 hr electolytes x next 24 - 48 hrs 6. check phos 7. LFTs; direct bili 8. Abd US
--- NOTE | 2017-08-29 10:03 | Admission Certification ---
Admission Certification Certification Statement - As attending physician, I certify that at the time of - admission, based on clinical presentation, severity of - symptoms, need for further diagnostic testing and - therapeutic interventions, and risk of adverse outcomes - without in-hospital treatment, in my clinical assessment, - this patient requires an acute hospital stay for a minimum - of two nights or longer. I have also considered psychsocial - factors such as support system, advanced age, financial - issues, cognitive issues, and failed out-patient treatments, - past re-admission history, safety of patient, and lack of - compliance as applicable. Specific rationale supporting this admission is: Weakness, falls confusion severe hyponatremia
--- NOTE | 2017-08-29 10:06 | PN- Att Addend ---
Attending Addendum Attending Brief Note 72-year-old white male previous history of hyponatremia, also history of alcohol use but may be depressed. Has been falling in the last couple of days been more confused when he came to the emergency room his sodium was 110, he was evaluated in the emergency treatment was given and admitted to the intensive care unit for close observation monitoring the sodium very closely and making sure that it does not go up too quickly. Patient was seen by nephrology and recommendations were given. Also will evaluate abnormal liver function tests 24 TOTALS 08/29 0000 08/28 0000 Intake Total 1000 Output Total Balance 1000 Intake, IV 1000 Patient 135 lb Weight Current Medications Sig/Alissa Start time Last Medication Dose Route Stop Time Status Admin Acetaminophen 650 MG Q6P PRN 08/29 0100 AC PO Buspirone HCl 15 MG BID 08/29 0900 AC 08/29 PO 0838 Folic Acid 1 MG DAILY 08/29 0900 AC 08/29 PO 0838 Heparin Sodium 5,000 UNIT Q8 08/29 0600 AC 08/29 (Porcine) SC 0621 Lorazepam 0 Q1P PRN 08/29 0115 AC IV Lorazepam 2 MG Q6 08/29 0106 AC PO Losartan Potassium 50 MG DAILY 08/29 0900 AC 08/29 PO 0838 Metoprolol Succinate 100 MG DAILY 08/29 0900 AC 08/29 PO 0839 Multivitamins 1 TAB DAILY 08/29 0900 AC 08/29 PO 0838 Potassium Chloride 20 MEQ ONCE ONE 08/29 0630 CAN IV 08/29 0631 Potassium Chloride 10 MEQ ONCE ONE 08/29 0630 DC 08/29 IV 08/29 0631 0633 Potassium Chloride 10 MEQ ONCE ONE 08/29 0630 DC 08/29 IV 08/29 0631 0745 Potassium Chloride 40 MEQ ONCE ONE 08/29 0315 DC 08/29 PO 08/29 0316 0316 Sodium Chloride 3,000 MG TID 08/29 0900 AC 08/29 PO 0928 Sodium Chloride 1,000 ML BOLUS ONE 08/28 2330 DC 08/28 IV 08/29 0029 2341 Thiamine HCl 100 MG DAILY 08/29 0900 AC 08/29 PO 0838 Laboratory Tests 08/29/17 1000: Magnesium Cancelled, APTT Cancelled 08/29/17 0547: Anion Gap 13, Estimated GFR > 60, BUN/Creatinine Ratio 36.7 H, TSH 1.260, Free T4 2.42, Cortisol AM Sample 15.3, CBC w Diff NO MAN DIFF REQ, RBC 4.55 L, MCV 96.8 H, MCH 33.6 H, MCHC 34.7, RDW 12.3, MPV 7.9, Gran % 72.9, Lymphocytes % 12.7 L, Monocytes % 13.2 H, Eosinophils % 0.8, Basophils % 0.4, Absolute Granulocytes 6.7 H, Absolute Lymphocytes 1.2, Absolute Monocytes 1.2 H, Absolute Eosinophils 0.1, Absolute Basophils 0 08/29/17 0239: Anion Gap 14, Estimated GFR > 60, BUN/Creatinine Ratio 38.3 H 08/29/17 0123: Urinalysis MOD H, Urine Color YEL, Urine Clarity HAZY H, Urine pH 6.0, Ur Specific [place] 1.020, Urine Protein NEG, Urine Ketones 15 H, Urine Nitrite NEG, Urine Bilirubin NEG@ICTO, Urine Urobilinogen 4.0 H, Ur Leukocyte Esterase NEG, Ur Microscopic SEDIMENT EXAMINED, Urine RBC 3-5, Urine WBC 1-3 H, Ur Epithelial Cells FEW, Urine Crystals , Urine Bacteria FEW H, Urine Mucus MOD H, Urine Hemoglobin TRACE-INTACT H, Urine Glucose NEG 08/29/17 0123: Urine Opiates Screen < 100, Methadone Screen < 40, Barbiturate Screen < 60, Ur Phencyclidine Scrn < 6.00, Amphetamines Screen < 100, U Benzodiazepines Scrn < 85, Urine Cocaine Screen < 50, Urine Cannabis Screen < 5.00, Urine Osmolality 632, Ur Random Creatinine 103.3, Ur Random Sodium 36, Ur Random Potassium 60.7, Fraction Sodium Excret 0.2 08/29/17 0120: Lactic Acid 1.3 08/28/17 2254: Anion Gap 17 H, Estimated GFR > 60, BUN/Creatinine Ratio 35.7 H, Glucose 126 H, Serum Osmolality 239 L, Lactic Acid 2.4 H, Calcium 9.5, Magnesium 1.9, Total Bilirubin 3.8 H, AST 46, ALT 44, Alkaline Phosphatase 65, Creatine Kinase 142, Troponin I 0.02, Total Protein 7.2, Albumin 4.3, Globulin 2.9, Albumin/ Globulin Ratio 1.5, CBC w Diff NO MAN DIFF REQ, RBC 5.23, MCV 96.4 H, MCH 33.1 H, MCHC 34.3, RDW 12.1, MPV 8.2, Gran % 77.5 H, Lymphocytes % 10.3 L, Monocytes % 11.6 H, Eosinophils % 0.5, Basophils % 0.1, Absolute Granulocytes 8.7 H, Absolute Lymphocytes 1.2, Absolute Monocytes 1.3 H, Absolute Eosinophils 0.1, Absolute Basophils 0, Serum Alcohol < 10.0 Vital Signs Date Time Temp Pulse Resp B/P B/P Pulse O2 O2 Flow FiO2 Mean Ox Delivery Rate 08/29 0839 58 142/78 08/29 0838 58 142/78 08/29 0600 97.6 62 23 131/67 08/29 0400 97.6 62 25 152/88 08/29 0400 98 Room Air 08/29 0100 95 Room Air 08/29 0032 97.7 58 18 185/87 98 Room Air 08/28 2300 97.8 56 16 149/87 08/28 2237 97.8 56 16 149/87 97 Room Air Patient will be on fluid restriction and get sodium pills. Also monitor his potassium
[2017-08-29 10:50] LABS: PT 12.4 SEC (9.4-12.5); PTT 28 SEC (25-37)
--- NOTE | 2017-08-29 14:13 | ULTRASOUND REPORT ---
EXAMINATION: US ABDOMEN LIMITED CLINICAL INFORMATION: Abnormal liver function tests. Daily alcohol intake for 50 years. Evaluate for cirrhosis.. COMPARISON: None TECHNIQUE: Real-time imaging of the right upper quadrant abdominal viscera. FINDINGS: PANCREAS: The pancreas is obscured by bowel gas. LIVER: Liver is difficult to evaluate due to lack of optimal intercostal acoustic windows. The visualized liver has normal size, contour and echotexture. No evidence of cirrhosis, mass or intrahepatic bile duct dilatation. GALLBLADDER: The gallbladder is physiologically distended without evidence of polyps, wall thickening or pericholecystic fluid. A mobile gallstone measuring up to 0.6 cm is noted. COMMON BILE DUCT: The nondilated common duct cannot be visualized. RIGHT KIDNEY: Normal. No hydronephrosis. No renal calculi or focal parenchymal lesions. The kidney measures 10.8 cm in maximum dimension. FREE FLUID: None. IMPRESSION: - Liver is sonographically normal. No evidence of hepatic steatosis, mass, cirrhosis or ascites. - Gallbladder contains a mobile, 0.6 cm calculus.
--- NOTE | 2017-08-29 14:33 | RADIOLOGY REPORT ---
EXAMINATION: XR ANKLE, RIGHT CLINICAL INFORMATION: Bruising of right ankle. Gait instability. COMPARISON: None TECHNIQUE: Right ankle, 3 views FINDINGS: Alignment is normal. The talar dome is well-positioned within the intact ankle mortise. No fracture, subluxation or ankle joint effusion. The ankle joint space and syndesmotic space are normal. Moderate-sized plantar calcaneal enthesophyte. Peripheral vascular calcifications are seen. Minimal soft tissue swelling of the lateral ankle. IMPRESSION: 1. No evidence of fracture, malalignment or joint effusion at the right ankle. 2. Plantar calcaneal enthesophyte is noted.
[2017-08-30] VITALS (8 sets, daily range): BP systolic 123–160; BP diastolic 62–92
--- NOTE | 2017-08-30 07:32 | PN- Resident CRCU ---
Kevin GEORGES,[facility] 08/30/17 0732: Subjective HPI/CRCU Issues: Hyponatremia in the setting of alcohol dependence and thiazid use. 24 Hour Events: The pt was found more confused than baseline this morning, he received 2 mg of IV ativan. He denies any other current active complain. Objective Vital Signs & I&O Last 8 Hrs of Vitals and I&O: Laboratory Tests 08/30 08/30 08/30 08/29 08/29 1309 0500 0010 2345 2300 Chemistry Sodium (137 - 145 mmol/L) 121 L 120 L 120 L Cancelled Potassium (3.5 - 5.1 mmol/L) 4.3 3.8 3.3 L Cancelled Chloride (98 - 107 mmol/L) 82 L 84 L 84 L Cancelled Carbon Dioxide (22 - 30 mmol/L) 28 27 27 Cancelled Anion Gap (5 - 16) 11 9 9 Cancelled BUN (9 - 20 mg/dL) 14 16 19 Cancelled Creatinine (0.7 - 1.2 mg/dL) 0.6 L 0.6 L 0.7 Cancelled Estimated GFR (>60 ml/min) > 60 > 60 > 60 BUN/Creatinine Ratio (7 - 25 %) 23.3 Glucose (65 - 99 mg/dL) 104 H 108 H Cancelled Calcium (8.4 - 10.2 mg/dL) 8.9 8.8 Cancelled Phosphorus (2.5 - 4.5 mg/dL) 3.1 2.2 L 2.2 L Cancelled Magnesium (1.6 - 2.3 mg/dL) 1.9 2.0 2.0 Cancelled Total Bilirubin (0.2 - 1.3 mg/dL) 2.2 H 2.6 H Cancelled AST (17 - 59 U/L) 30 30 Cancelled ALT (21 - 72 U/L) 36 41 Cancelled Albumin (3.5 - 5.0 g/dL) 3.5 3.4 L Cancelled Urines Urine Osmolality (300 - 1000 MOSM/KG) 585 Ur Random Creatinine (mg/dL) 93.0 Ur Random Sodium (30 - 90 mmol/L) 30 Ur Random Potassium (mmol/L) 43.3 Fraction Sodium Excret (<1% %) 0.2 08/29 08/29 08/29 2040 1800 1628 Chemistry Sodium (137 - 145 mmol/L) 117 *L Cancelled 119 *L Potassium (3.5 - 5.1 mmol/L) 3.6 Cancelled 3.1 L Chloride (98 - 107 mmol/L) 83 L Cancelled 82 L Carbon Dioxide (22 - 30 mmol/L) 27 Cancelled 28 Anion Gap (5 - 16) 7 Cancelled 9 BUN (9 - 20 mg/dL) 18 Cancelled 20 Creatinine (0.7 - 1.2 mg/dL) 0.6 L Cancelled 0.7 Estimated GFR (>60 ml/min) > 60 > 60 Glucose (65 - 99 mg/dL) 133 H Cancelled 104 H Calcium (8.4 - 10.2 mg/dL) 8.4 Cancelled 8.8 Phosphorus (2.5 - 4.5 mg/dL) 2.0 L Cancelled 2.3 L Magnesium (1.6 - 2.3 mg/dL) 1.8 Cancelled 1.9 Total Bilirubin (0.2 - 1.3 mg/dL) 2.6 H Cancelled 2.8 H Direct Bilirubin (< 0.4 mg/dL) 0.5 H AST (17 - 59 U/L) 34 Cancelled 30 ALT (21 - 72 U/L) 34 Cancelled 36 Albumin (3.5 - 5.0 g/dL) 3.4 L Cancelled 3.5 Intake & Output 08/30 1600 Intake Total Output Total Balance Patient 65.2 kg Weight Exam General Appearance: well developed/nourished, no apparent distress, awake, confused and oriented X1 Head: atraumatic, normal appearance Neck: supple, No JVD Respiratory: no respiratory distress, lungs clear Cardiovascular: regular rate/rhythm Gastrointestinal: normal bowel sounds, soft, non-tender Extremities: normal inspection, No edema Cranial Nerves: normal hearing, normal speech, PERRL, normal CN 2-12 Current Medications: Current Medications Sig/Alissa Start time Last Medication Dose Route Stop Time Status Admin Buspirone HCl 15 MG BID 08/29 0900 AC 08/30 PO 1036 Dextrose/Water 1,000 ML Q20H 08/30 0200 AC 08/30 IV 08/30 2159 0200 Dextrose/Water 1,000 ML .Q10H 08/29 1630 DC 08/29 IV 08/30 1147 1723 Folic Acid 1 MG DAILY 08/29 0900 AC 08/30 PO 1033 Heparin Sodium 5,000 UNIT Q8 08/29 0600 AC 08/30 (Porcine) SC 0512 Lorazepam 1 MG Q8 08/30 1400 CAN PO Lorazepam 2 MG Q8 08/29 2200 DC 08/30 PO 0517 Lorazepam 0 Q1P PRN 08/29 0115 AC IV Lorazepam 2 MG Q6 08/29 0106 DC PO Losartan Potassium 50 MG DAILY 08/29 0900 AC 08/30 PO 1146 Magnesium Chloride 64 MG BID 08/29 1715 AC 08/30 PO 1034 Metoclopramide HCl 10 MG ONCE ONE 08/30 1245 DC 08/30 IV 08/30 1246 1254 Metoprolol Succinate 100 MG DAILY 08/29 0900 AC 08/29 PO 0839 Multivitamins 1 TAB DAILY 08/29 0900 AC 08/30 PO 1033 Phosphate 250 MG BID 08/30 2100 AC PO Phosphate 250 MG ONCE ONE 08/30 1145 DC PO 08/30 1146 Potassium Chloride 40 MEQ ONCE ONE 08/29 2230 DC 08/30 PO 08/29 2231 0017 Potassium Chloride 10 MEQ Q1H 08/29 1630 DC IV 08/29 1731 Potassium Chloride 60 MEQ ONCE ONE 08/29 1630 DC 08/29 PO 08/29 1631 1723 Potassium Chloride 40 MEQ .STK-MED ONE 08/29 1625 DC PO 08/29 1626 Potassium Phosphate 15 mMol ONE ONE 08/30 1000 DC 08/30 Dextrose/Water 250 ML IV 08/30 1404 1032 Sodium Chloride 3,000 MG TID 08/30 1400 AC PO Sodium Chloride 3,000 MG TID 08/29 0900 DC 08/29 PO 1410 Thiamine HCl 250 MG DAILY 09/02 0900 AC Sodium Chloride 100 ML IV 09/06 1001 Thiamine HCl 500 MG TID 08/30 1400 AC Sodium Chloride 250 ML IV 09/01 1001 Thiamine HCl 100 MG DAILY 08/29 0900 DC 08/30 PO 1034 Impression/Plan Impression/Problem List Impression: 72 year old male with > 50 pack-years history and chronic alcohol used as 6-8 beers for the past 50 years, who presented to ED after confusion and fall and was found to have a sodium of 110 for which he was admitted to ICU. At home, he is on Thiazide for HTN. The pt hs also associated hypokalemia and hypophosphatemia. A&P #Resp * >50 pack-year history * serg saturatin well on RA * He meets criteria for LDCT screening, can be done as out patinet. #ID * No sings or symptoms of active infection. #Cardio * Hx of HTN, was no thiazid at home * Hold thiazid given hyponatremia. * DC losartan * Start amlodipin * Continue metoprolol #Hem: * stable, normal WBCs or anemia. #Metabolic: * Hyponatremia, most likely a mix of dehydration given thiazide and alcohol dependance, mixed with SIADH given high urine osmolarity and lowe serum osmolarity. * we will start pt back on sodium tablets and continue D5W. * Repeat BEEP, Quentin, and Mg every 4 hours, adjust fluid accordingly. * we'll replete K, Mg and Quentin as needed. * Hx of alcohol dependancy, scoring low on CIWA. * IV ativan as per score, no scheduled ativan. #Alimentary: * Total bilirubin is 2.2 today, down from 3.8 on admission. mostly 2/2 to alcohol drink * No transaminitis. * Abd U/S showed no evidence of hepatic steatosis, mass, cirrhosis or ascites. #Nephro * No nephrology issue, except hyponatremia. #Neuro * Was confused compare to yesterday. * Possible 2/2 hyponatremia, alcohol withdrow, & Ativan IV. * CAM score was negative for dilirum. * We will follow pt after Na is better corrected and Ativan is out of his system. * We will start pt on thiamin as for Wernicke encephalopathy -Diet: Mechanical soft and regular -DVT PPx ALPS & Hep SC -FC Problem List: 1. Hyponatremia 2. Alcohol abuse Pain Ratin Tomorrow's Labs & Rationales: ICU bundle to follow Na, K, Quentin, Ca and LFTs David Kaplan MD 08/30/17 0851: Impression/Plan Plan DVT/Prophylaxis: pharmacological Attending MD Review Statement Attending Sign Off Attending Cosign Statement: I have: examined this patient, reviewed avalbl EMR data, personally reviewd images, discussd w/resident/PA/EMERGENCY CREW SUPERVISOR, discussed mgmt plan w/sebastian, discussed mgmt plan w/CM, discussed mgmt plan w/pt, agreed w/resident/PA/EMERGENCY CREW SUPERVISOR, amended to note. Other Findings: Impression 72 year old man * hyponatremia in the setting of etoh dependence Plan -renal appreciated -fluid restriction, sodium tabs -can benefit from LDCT as outpt DVT prophylaxis at all times TTS 35 min
--- NOTE | 2017-08-30 09:18 | PN- Nephrology ---
Assessment/Plan Nephrology Assessment: 1. Hyponatremia: severe & chronic in setting thiazide diiuretic. Improving & doubt MS change related to current hyponatremia. Continues at risk for central demyelinating syndrome from rapid correction & would continue w IV D5 to limit Na rise ~mid 120s over next 24 hrs 2. Hypokalemia: improving --> needs more po KCl 3. Hypophos: supplement po Suggestion: 1. relax po fluids 1 liter/day 2. lower IV D5 to 50 ml/hr 3. KCl 40 meq po this AM 4. neutraphos po bid 5. restart NaCl 3 grams po tid 6. q 4 hrs lytes --> if Na > 125 can increase IV D5 rate again & add DDAVP sc if needed 7. consider MR head Subjective Subjective: Awake but more confused this AM On IV D5 after ? Na rise mid 120s yesterday afternoon (other associated labs w that draw raise ? lab error) w subsequent Na ~ 120 Objective Vital Signs and I&Os Vital Signs Date Time Temp Pulse Resp B/P B/P Pulse O2 O2 Flow FiO2 Mean Ox Delivery Rate 08/30 0600 49 20 147/77 08/30 0400 96.9 49 18 140/72 08/30 0400 94 Room Air 08/30 0200 56 26 123/62 08/30 0200 98.1 56 20 135/62 08/30 0000 98.1 56 20 160/90 94 Room Air 08/30 0000 94 Room Air 08/29 2200 54 25 144/97 08/29 2000 97.6 55 22 150/90 08/29 2000 95 Room Air 08/29 1600 98.1 59 18 158/62 08/29 1600 98.1 59 18 158/62 97 Room Air 08/29 1400 56 20 190/90 08/29 1200 98.8 60 20 168/64 08/29 1200 98.8 60 20 168/64 94 Room Air 08/29 1000 56 20 133/76 Intake & Output 08/30 1600 08/30 0400 08/29 1600 08/29 0400 08/28 1600 08/28 0400 Intake Total 306 296 798 6635 Output Total 150 200 900 Balance 156 420 -200 1000 Intake, IV 181 534 466 6582 Intake, Oral 125 150 600 Number 0 0 Bowel Movements Output, Urine 150 200 900 Patient 144 lb Weight Weight Bed scale Measurement Method Physical Exam General Appearance: well developed/nourished, no apparent distress, awake Head: atraumatic Ears, Nose, Throat: normal ENT inspection Neck: normal inspection Respiratory: normal breath sounds, quiet respiration, lungs clear Cardiovascular: regular rate/rhythm Abdomen: soft, non-tender, no organomegaly Extremities: no edema Neurologic/Psychiatric: no motor/sensory deficits, awake, therapist asst II-XII nml as tested, disoriented x 3, no asterixis Skin: intact, normal color Lymphatic: no anterior cervical latanya Current Medications: Current Medications Sig/Alissa Start time Last Medication Dose Route Stop Time Status Admin Acetaminophen 650 MG Q6P PRN 08/29 0100 DC PO Buspirone HCl 15 MG BID 08/29 0900 AC 08/29 PO 2207 Dextrose/Water 1,000 ML Q20H 08/30 0200 AC 08/30 IV 08/30 2159 0200 Dextrose/Water 1,000 ML .Q10H 08/29 1630 DC 08/29 IV 08/30 1147 1723 Folic Acid 1 MG DAILY 08/29 0900 AC 08/29 PO 0838 Heparin Sodium 5,000 UNIT Q8 08/29 0600 AC 08/30 (Porcine) SC 0512 Lorazepam 1 MG Q8 08/30 1400 AC PO Lorazepam 2 MG Q8 08/29 2200 DC 08/30 PO 0517 Lorazepam 0 Q1P PRN 08/29 0115 AC IV Lorazepam 2 MG Q6 08/29 0106 DC PO Losartan Potassium 50 MG DAILY 08/29 0900 AC 08/29 PO 0838 Magnesium Chloride 64 MG BID 08/29 1715 AC 08/29 PO 2209 Metoprolol Succinate 100 MG DAILY 08/29 0900 AC 08/29 PO 0839 Multivitamins 1 TAB DAILY 08/29 0900 AC 08/29 PO 0838 Potassium Chloride 40 MEQ ONCE ONE 08/29 2230 DC 08/30 PO 08/29 2231 0017 Potassium Chloride 10 MEQ Q1H 08/29 1630 DC IV 08/29 1731 Potassium Chloride 60 MEQ ONCE ONE 08/29 1630 DC 08/29 PO 08/29 1631 1723 Potassium Chloride 40 MEQ .STK-MED ONE 08/29 1625 DC PO 08/29 1626 Sodium Chloride 3,000 MG TID 08/29 0900 DC 08/29 PO 1410 Thiamine HCl 100 MG DAILY 08/29 0900 AC 08/29 PO 0838 Results Pertinent Lab Results: Laboratory Tests 08/30 08/30 08/29 08/29 08/29 0500 0010 2345 2300 2040 Chemistry Sodium (137 - 145 mmol/L) 120 L 120 L Cancelled 117 *L Potassium (3.5 - 5.1 mmol/L) 3.8 3.3 L Cancelled 3.6 Chloride (98 - 107 mmol/L) 84 L 84 L Cancelled 83 L Carbon Dioxide (22 - 30 mmol/L) 27 27 Cancelled 27 Anion Gap (5 - 16) 9 9 Cancelled 7 BUN (9 - 20 mg/dL) 16 19 Cancelled 18 Creatinine (0.7 - 1.2 mg/dL) 0.6 L 0.7 Cancelled 0.6 L Estimated GFR (>60 ml/min) > 60 > 60 > 60 Glucose (65 - 99 mg/dL) 104 H 108 H Cancelled 133 H Calcium (8.4 - 10.2 mg/dL) 8.9 8.8 Cancelled 8.4 Phosphorus (2.5 - 4.5 mg/dL) 2.2 L 2.2 L Cancelled 2.0 L Magnesium (1.6 - 2.3 mg/dL) 2.0 2.0 Cancelled 1.8 Total Bilirubin (0.2 - 1.3 mg/dL) 2.2 H 2.6 H Cancelled 2.6 H AST (17 - 59 U/L) 30 30 Cancelled 34 ALT (21 - 72 U/L) 36 41 Cancelled 34 Albumin (3.5 - 5.0 g/dL) 3.5 3.4 L Cancelled 3.4 L Urines Urine Osmolality (300 - 1000 MOSM/KG) 585 Ur Random Creatinine (mg/dL) 93.0 Ur Random Sodium (30 - 90 mmol/L) 30 Ur Random Potassium (mmol/L) 43.3 Fraction Sodium Excret (<1% %) 0.2 08/29 08/29 08/29 08/29 08/29 1800 1628 1420 1020 1020 Chemistry Sodium (137 - 145 mmol/L) Cancelled 119 *L 126 L 115 *L Potassium (3.5 - 5.1 mmol/L) Cancelled 3.1 L 2.1 *L 3.5 Chloride (98 - 107 mmol/L) Cancelled 82 L 100 79 L Carbon Dioxide (22 - 30 mmol/L) Cancelled 28 19 L 27 Anion Gap (5 - 16) Cancelled 9 7 9 BUN (9 - 20 mg/dL) Cancelled 20 16 22 H Creatinine (0.7 - 1.2 mg/dL) Cancelled 0.7 0.5 L 0.6 L Estimated GFR (>60 ml/min) > 60 > 60 > 60 Glucose (65 - 99 mg/dL) Cancelled 104 H 73 112 H Calcium (8.4 - 10.2 mg/dL) Cancelled 8.8 5.5 *L 8.7 Phosphorus (2.5 - 4.5 mg/dL) Cancelled 2.3 L 1.7 L 2.5 Magnesium (1.6 - 2.3 mg/dL) Cancelled 1.9 1.3 L 1.9 Total Bilirubin (0.2 - 1.3 mg/dL) Cancelled 2.8 H 1.8 H 3.4 H Direct Bilirubin (< 0.4 mg/dL) 0.5 H AST (17 - 59 U/L) Cancelled 30 19 35 ALT (21 - 72 U/L) Cancelled 36 36 41 Albumin (3.5 - 5.0 g/dL) Cancelled 3.5 1.9 L 3.5 Coagulation PT (9.4 - 12.5 SEC) 12.4 INR (0.90 - 1.17) 1.14 APTT (25 - 37 SEC) 28 Serology Hepatitis A IgM Ab (NONREACTIVE) Cancelled NONREACTIVE Hep Bs Antigen (NONREACTIVE) Cancelled NONREACTIVE Hep B Core IgM Ab Conf (NONREACTIVE) Cancelled NONREACTIVE Hepatitis C Antibody (NONREACTIVE) Cancelled NONREACTIVE 08/29 08/29 08/29 1003 1000 0547 Chemistry Sodium (137 - 145 mmol/L) Cancelled 114 *L Potassium (3.5 - 5.1 mmol/L) Cancelled 3.0 L Chloride (98 - 107 mmol/L) Cancelled 76 L Carbon Dioxide (22 - 30 mmol/L) Cancelled 25 Anion Gap (5 - 16) Cancelled 13 BUN (9 - 20 mg/dL) Cancelled 22 H Creatinine (0.7 - 1.2 mg/dL) Cancelled 0.6 L Estimated GFR (>60 ml/min) > 60 BUN/Creatinine Ratio (7 - 25 %) 36.7 H Glucose Cancelled Calcium Cancelled Phosphorus Cancelled Magnesium Cancelled Cancelled Total Bilirubin Cancelled AST Cancelled ALT Cancelled Albumin Cancelled TSH (0.270 - 4.200 uIU/mL) 1.260 Free T4 (0.78 - 2.44 ng/dL) 2.42 Cortisol AM Sample (4.46 - 22.7 ug/dL) 15.3 Coagulation APTT Cancelled Hematology CBC w Diff NO MAN DIFF REQ WBC (4.8 - 10.8 /CUMM) 9.2 RBC (4.70 - 6.10 /CUMM) 4.55 L Hgb (14.0 - 18.0 G/DL) 15.3 Hct (42 - 52 %) 44.0 MCV (80.0 - 94.0 FL) 96.8 H MCH (27.0 - 31.0 PG) 33.6 H MCHC (33.0 - 37.0 G/DL) 34.7 RDW (11.5 - 14.5 %) 12.3 Plt Count (130 - 400 /CUMM) 173 MPV (7.4 - 10.4 FL) 7.9 Gran % (42.2 - 75.2 %) 72.9 Lymphocytes % (20.5 - 51.1 %) 12.7 L Monocytes % (1.7 - 9.3 %) 13.2 H Eosinophils % (0 - 5 %) 0.8 Basophils % (0.0 - 2.0 %) 0.4 Absolute Granulocytes (1.4 - 6.5 /CUMM) 6.7 H Absolute Lymphocytes (1.2 - 3.4 /CUMM) 1.2 Absolute Monocytes (0.10 - 0.60 /CUMM) 1.2 H Absolute Eosinophils (0.0 - 0.7 /CUMM) 0.1 Absolute Basophils (0.0 - 0.2 /CUMM) 0 08/29 08/29 08/29 0239 0123 0123 Chemistry Sodium (137 - 145 mmol/L) 114 *L Potassium (3.5 - 5.1 mmol/L) 3.3 L Chloride (98 - 107 mmol/L) 76 L Carbon Dioxide (22 - 30 mmol/L) 24 Anion Gap (5 - 16) 14 BUN (9 - 20 mg/dL) 23 H Creatinine (0.7 - 1.2 mg/dL) 0.6 L Estimated GFR (>60 ml/min) > 60 BUN/Creatinine Ratio (7 - 25 %) 38.3 H Toxicology Urine Opiates Screen (>2000 NG/ML) < 100 Methadone Screen (>300 NG/ML) < 40 Barbiturate Screen (>200 NG/ML) < 60 Ur Phencyclidine Scrn (>25 NG/ML) < 6.00 Amphetamines Screen (>1000 NG/ML) < 100 U Benzodiazepines Scrn (>200 NG/ML) < 85 Urine Cocaine Screen (>300 NG/ML) < 50 Urine Cannabis Screen (>50 NG/ML) < 5.00 Urines Urinalysis MOD H Urine Color (YEL,AMB,STR) YEL Urine Clarity (CLEAR) HAZY H Urine pH (5.0 - 8.0) 6.0 Ur Specific [place] (1.001 - 1.035) 1.020 Urine Protein (NEG,<30 MG/DL) NEG Urine Ketones (NEG) 15 H Urine Nitrite (NEG) NEG Urine Bilirubin (NEG) NEG@ICTO Urine Urobilinogen (0.1 - 1.0 EU/dl) 4.0 H Ur Leukocyte Esterase (NEG) NEG Ur Microscopic SEDIMENT EXAMINED Urine RBC (0 - 5 /HPF) 3-5 Urine WBC (0 - 2 /HPF) 1-3 H Ur Epithelial Cells (NONE,FEW) FEW Urine Crystals Urine Bacteria (NEG/NONE) FEW H Urine Mucus (FEW,NONE) MOD H Urine Hemoglobin (NEG) TRACE-INTACT H Urine Osmolality (300 - 1000 MOSM/KG) 632 Ur Random Creatinine (mg/dL) 103.3 Ur Random Sodium (30 - 90 mmol/L) 36 Ur Random Potassium (mmol/L) 60.7 Fraction Sodium Excret (<1% %) 0.2 Urine Glucose (N MG/DL) NEG 08/29 08/28 0120 2254 Chemistry Sodium (137 - 145 mmol/L) 110 *L Potassium (3.5 - 5.1 mmol/L) 3.6 Chloride (98 - 107 mmol/L) 69 L Carbon Dioxide (22 - 30 mmol/L) 24 Anion Gap (5 - 16) 17 H BUN (9 - 20 mg/dL) 25 H Creatinine (0.7 - 1.2 mg/dL) 0.7 Estimated GFR (>60 ml/min) > 60 BUN/Creatinine Ratio (7 - 25 %) 35.7 H Glucose (65 - 99 mg/dL) 126 H Serum Osmolality (285 - 295 MOSM/KG) 239 L Lactic Acid (0.7 - 2.1 mmol/L) 1.3 2.4 H Calcium (8.4 - 10.2 mg/dL) 9.5 Magnesium (1.6 - 2.3 mg/dL) 1.9 Total Bilirubin (0.2 - 1.3 mg/dL) 3.8 H AST (17 - 59 U/L) 46 ALT (21 - 72 U/L) 44 Alkaline Phosphatase (< 127 U/L) 65 Creatine Kinase (55 - 170 U/L) 142 Troponin I (<0.11 ng/ml) 0.02 Total Protein (6.3 - 8.2 g/dL) 7.2 Albumin (3.5 - 5.0 g/dL) 4.3 Globulin (1.9 - 4.2 gm/dL) 2.9 Albumin/Globulin Ratio (1.1 - 2.2 %) 1.5 Hematology CBC w Diff NO MAN DIFF REQ WBC (4.8 - 10.8 /CUMM) 11.3 H RBC (4.70 - 6.10 /CUMM) 5.23 Hgb (14.0 - 18.0 G/DL) 17.3 Hct (42 - 52 %) 50.5 MCV (80.0 - 94.0 FL) 96.4 H MCH (27.0 - 31.0 PG) 33.1 H MCHC (33.0 - 37.0 G/DL) 34.3 RDW (11.5 - 14.5 %) 12.1 Plt Count (130 - 400 /CUMM) 206 MPV (7.4 - 10.4 FL) 8.2 Gran % (42.2 - 75.2 %) 77.5 H Lymphocytes % (20.5 - 51.1 %) 10.3 L Monocytes % (1.7 - 9.3 %) 11.6 H Eosinophils % (0 - 5 %) 0.5 Basophils % (0.0 - 2.0 %) 0.1 Absolute Granulocytes (1.4 - 6.5 /CUMM) 8.7 H Absolute Lymphocytes (1.2 - 3.4 /CUMM) 1.2 Absolute Monocytes (0.10 - 0.60 /CUMM) 1.3 H Absolute Eosinophils (0.0 - 0.7 /CUMM) 0.1 Absolute Basophils (0.0 - 0.2 /CUMM) 0 Toxicology Serum Alcohol (<10 MG/DL) < 10.0 Imaging/Other Studies: US: Liver is sonographically normal. No evidence of hepatic steatosis, mass, cirrhosis or ascites. Gallbladder contains a mobile, 0.[address]: No evidence for acute intracranial injury. Age-appropriate appearance of the brain. No evidence for acute injury to the cervical spine. Mild lower cervical spine degenerative change. CXR: No acute abnormality of chest.
--- NOTE | 2017-08-30 10:49 | PN- Att Addend ---
Attending Addendum Attending Brief Note A little confused this morning. Vital signs are stable no fever. No major changes on physical exam. Appreciate nephrology's input and recommendations the IV fluids were reassessed, the fluid restriction continues replacing electrolytes as needed started thiamine. Continue monitoring labs closely and neuro checks. Intake & Output 08/30 1600 08/30 0400 08/29 1600 08/29 0400 08/28 1600 08/28 0400 Intake Total 306 890 830 6456 Output Total 150 200 900 Balance 156 420 -200 1000 Intake, IV 181 362 068 2304 Intake, Oral 125 150 600 Number 0 0 Bowel Movements Output, Urine 150 200 900 Patient 144 lb Weight Weight Bed scale Measurement Method Current Medications Sig/Alissa Start time Last Medication Dose Route Stop Time Status Admin Buspirone HCl 15 MG BID 08/29 0900 AC 08/30 PO 1036 Dextrose/Water 1,000 ML Q20H 08/30 0200 AC 08/30 IV 08/30 2159 0200 Dextrose/Water 1,000 ML .Q10H 08/29 1630 DC 08/29 IV 08/30 1147 1723 Folic Acid 1 MG DAILY 08/29 0900 AC 08/30 PO 1033 Heparin Sodium 5,000 UNIT Q8 08/29 0600 AC 08/30 (Porcine) SC 0512 Lorazepam 1 MG Q8 08/30 1400 AC PO Lorazepam 2 MG Q8 08/29 2200 DC 08/30 PO 0517 Lorazepam 0 Q1P PRN 08/29 0115 AC IV Lorazepam 2 MG Q6 08/29 0106 DC PO Losartan Potassium 50 MG DAILY 08/29 0900 AC 08/29 PO 0838 Magnesium Chloride 64 MG BID 08/29 1715 AC 08/30 PO 1034 Metoprolol Succinate 100 MG DAILY 08/29 0900 AC 08/29 PO 0839 Multivitamins 1 TAB DAILY 08/29 0900 AC 08/30 PO 1033 Potassium Chloride 40 MEQ ONCE ONE 08/29 2230 DC 08/30 PO 08/29 2231 0017 Potassium Chloride 10 MEQ Q1H 08/29 1630 DC IV 08/29 1731 Potassium Chloride 60 MEQ ONCE ONE 08/29 1630 DC 08/29 PO 08/29 1631 1723 Potassium Chloride 40 MEQ .STK-MED ONE 08/29 1625 DC PO 08/29 1626 Potassium Phosphate 15 mMol ONE ONE 08/30 1000 AC 08/30 Dextrose/Water 250 ML IV 08/30 1404 1032 Sodium Chloride 3,000 MG TID 08/30 1400 AC PO Sodium Chloride 3,000 MG TID 08/29 0900 DC 08/29 PO 1410 Thiamine HCl 100 MG DAILY 08/29 0900 AC 08/30 PO 1034 Laboratory Tests 08/30/17 0500: Anion Gap 9, Estimated GFR > 60, Glucose 104 H, Calcium 8.9, Phosphorus 2.2 L, Magnesium 2.0, Total Bilirubin 2.2 H, AST 30, ALT 36, Albumin 3.5 08/30/17 0010: Anion Gap 9, Estimated GFR > 60, Glucose 108 H, Calcium 8.8, Phosphorus 2.2 L, Magnesium 2.0, Total Bilirubin 2.6 H, AST 30, ALT 41, Albumin 3.4 L 08/29/17 2345: Urine Osmolality 585, Ur Random Creatinine 93.0, Ur Random Sodium 30, Ur Random Potassium 43.3, Fraction Sodium Excret 0.2 08/29/17 2300: Sodium Cancelled, Potassium Cancelled, Chloride Cancelled, Carbon Dioxide Cancelled, Anion Gap Cancelled, BUN Cancelled, Creatinine Cancelled, Glucose Cancelled, Calcium Cancelled, Phosphorus Cancelled, Magnesium Cancelled, Total Bilirubin Cancelled, AST Cancelled, ALT Cancelled, Albumin Cancelled 08/29/17 2040: Anion Gap 7, Estimated GFR > 60, Glucose 133 H, Calcium 8.4, Phosphorus 2.0 L, Magnesium 1.8, Total Bilirubin 2.6 H, AST 34, ALT 34, Albumin 3.4 L 08/29/17 1800: Sodium Cancelled, Potassium Cancelled, Chloride Cancelled, Carbon Dioxide Cancelled, Anion Gap Cancelled, BUN Cancelled, Creatinine Cancelled, Glucose Cancelled, Calcium Cancelled, Phosphorus Cancelled, Magnesium Cancelled, Total Bilirubin Cancelled, AST Cancelled, ALT Cancelled, Albumin Cancelled 08/29/17 1628: Anion Gap 9, Estimated GFR > 60, Glucose 104 H, Calcium 8.8, Phosphorus 2.3 L, Magnesium 1.9, Total Bilirubin 2.8 H, Direct Bilirubin 0.5 H, AST 30, ALT 36, Albumin 3.5 08/29/17 1420: Anion Gap 7, Estimated GFR > 60, Glucose 73, Calcium 5.5 *L, Phosphorus 1.7 L, Magnesium 1.3 L, Total Bilirubin 1.8 H, AST 19, ALT 36, Albumin 1.9 L 08/29/17 1020: Hepatitis A IgM Ab Cancelled, Hep Bs Antigen Cancelled, Hep B Core IgM Ab Conf Cancelled, Hepatitis C Antibody Cancelled 08/29/17 1020: Anion Gap 9, Estimated GFR > 60, Glucose 112 H, Calcium 8.7, Phosphorus 2.5, Magnesium 1.9, Total Bilirubin 3.4 H, AST 35, ALT 41, Albumin 3.5, PT 12.4, INR 1.14, APTT 28, Hepatitis A IgM Ab NONREACTIVE, Hep Bs Antigen NONREACTIVE, Hep B Core IgM Ab Conf NONREACTIVE, Hepatitis C Antibody NONREACTIVE 08/29/17 1003: Sodium Cancelled, Potassium Cancelled, Chloride Cancelled, Carbon Dioxide Cancelled, Anion Gap Cancelled, BUN Cancelled, Creatinine Cancelled, Glucose Cancelled, Calcium Cancelled, Phosphorus Cancelled, Magnesium Cancelled, Total Bilirubin Cancelled, AST Cancelled, ALT Cancelled, Albumin Cancelled 08/29/17 1000: Magnesium Cancelled, APTT Cancelled 08/29/17 0547: Anion Gap 13, Estimated GFR > 60, BUN/Creatinine Ratio 36.7 H, TSH 1.260, Free T4 2.42, Cortisol AM Sample 15.3, CBC w Diff NO MAN DIFF REQ, RBC 4.55 L, MCV 96.8 H, MCH 33.6 H, MCHC 34.7, RDW 12.3, MPV 7.9, Gran % 72.9, Lymphocytes % 12.7 L, Monocytes % 13.2 H, Eosinophils % 0.8, Basophils % 0.4, Absolute Granulocytes 6.7 H, Absolute Lymphocytes 1.2, Absolute Monocytes 1.2 H, Absolute Eosinophils 0.1, Absolute Basophils 0 08/29/17 0239: Anion Gap 14, Estimated GFR > 60, BUN/Creatinine Ratio 38.3 H 08/29/17 0123: Urinalysis MOD H, Urine Color YEL, Urine Clarity HAZY H, Urine pH 6.0, Ur Specific [place] 1.020, Urine Protein NEG, Urine Ketones 15 H, Urine Nitrite NEG, Urine Bilirubin NEG@ICTO, Urine Urobilinogen 4.0 H, Ur Leukocyte Esterase NEG, Ur Microscopic SEDIMENT EXAMINED, Urine RBC 3-5, Urine WBC 1-3 H, Ur Epithelial Cells FEW, Urine Crystals , Urine Bacteria FEW H, Urine Mucus MOD H, Urine Hemoglobin TRACE-INTACT H, Urine Glucose NEG 08/29/17 0123: Urine Opiates Screen < 100, Methadone Screen < 40, Barbiturate Screen < 60, Ur Phencyclidine Scrn < 6.00, Amphetamines Screen < 100, U Benzodiazepines Scrn < 85, Urine Cocaine Screen < 50, Urine Cannabis Screen < 5.00, Urine Osmolality 632, Ur Random Creatinine 103.3, Ur Random Sodium 36, Ur Random Potassium 60.7, Fraction Sodium Excret 0.2 08/29/17 0120: Lactic Acid 1.3 08/28/17 2254: Anion Gap 17 H, Estimated GFR > 60, BUN/Creatinine Ratio 35.7 H, Glucose 126 H, Serum Osmolality 239 L, Lactic Acid 2.4 H, Calcium 9.5, Magnesium 1.9, Total Bilirubin 3.8 H, AST 46, ALT 44, Alkaline Phosphatase 65, Creatine Kinase 142, Troponin I 0.02, Total Protein 7.2, Albumin 4.3, Globulin 2.9, Albumin/ Globulin Ratio 1.5, CBC w Diff NO MAN DIFF REQ, RBC 5.23, MCV 96.4 H, MCH 33.1 H, MCHC 34.3, RDW 12.1, MPV 8.2, Gran % 77.5 H, Lymphocytes % 10.3 L, Monocytes % 11.6 H, Eosinophils % 0.5, Basophils % 0.1, Absolute Granulocytes 8.7 H, Absolute Lymphocytes 1.2, Absolute Monocytes 1.3 H, Absolute Eosinophils 0.1, Absolute Basophils 0, Serum Alcohol < 10.0 Microbiology 08/30 55 UPPER RESP: Surveillance Culture - COMP 08/30 55 GI: Surveillance Culture - COMP 08/29 49 BLOOD: Blood Culture - RECD 08/30 39 BLOOD: Blood Culture - RECD Microbiology 08/30 55 UPPER RESP: Surveillance Culture - COMP 08/30 55 GI: Surveillance Culture - COMP 08/29 49 BLOOD: Blood Culture - RECD 08/30 39 BLOOD: Blood Culture - RECD Vital Signs Date Time Temp Pulse Resp B/P B/P Pulse O2 O2 Flow FiO2 Mean Ox Delivery Rate 08/30 0600 49 20 147/77 08/30 0400 96.9 49 18 140/72 08/30 0400 94 Room Air 08/30 0200 56 26 123/62 08/30 0200 98.1 56 20 135/62 08/30 0000 98.1 56 20 160/90 94 Room Air 08/30 0000 94 Room Air 08/29 2200 54 25 144/97 08/29 2000 97.6 55 22 150/90 08/29 2000 95 Room Air 08/29 1600 98.1 59 18 158/62 08/29 1600 98.1 59 18 158/62 97 Room Air 08/29 1400 56 20 190/90 08/29 1200 98.8 60 20 168/64 08/29 1200 98.8 60 20 168/64 94 Room Air
[2017-08-31] VITALS (7 sets, daily range): BP systolic 108–170; BP diastolic 66–100
[2017-08-31 05:22] LABS: ABSOLUTE BASOPHIL COUNT 0 /CUMM (0.0-0.2); ABSOLUTE EOSINOPHIL COUNT 0.2 /CUMM (0.0-0.7); ABSOLUTE GRANULOCYTE CT 4.8 /CUMM (1.4-6.5); ABSOLUTE LYMPH COUNT 1.4 /CUMM (1.2-3.4); BASOPHIL % 0.4 % (0.0-2.0); EOSINOPHIL % 2.8 % (0-5); GRANULOCYTE % 64.2 % (42.2-75.2); HEMATOCRIT 45.6 % (42-52); MEAN CORPUSCULAR HGB 33.2 PG (27.0-31.0); MEAN CORPUSCULAR HGB CONC 33.8 G/DL (33.0-37.0); MEAN CORPUSCULAR VOLUME 98.4 FL (80.0-94.0); MEAN PLATELET VOLUME 8.1 FL (7.4-10.4); PLATELET COUNT 183 /CUMM (130-400); RBC DISTRIBUTION WIDTH 12.2 % (11.5-14.5); RED BLOOD CELL CT 4.64 /CUMM (4.70-6.10); WHITE BLOOD CELL COUNT 7.5 /CUMM (4.8-10.8)
--- NOTE | 2017-08-31 09:07 | PN- Nephrology ---
Assessment/Plan Nephrology Assessment: 1. Hyponatremia: severe & chronic in setting thiazide diuretic. Continues to improve 2. Hypokalemia: improved 3. Hypophos: continue po supplement Suggestion: 1. D/c IV D5 2. continue po NaCl today 3. liberalize po fluids 1200 ml/day OK for floor Target Na ~ 130 tomorrow --> then can d/c w/o thiazide diuretic Subjective Subjective: Much less confused this morning Eating - no vomiting No SOB Objective Vital Signs and I&Os Vital Signs Date Time Temp Pulse Resp B/P B/P Pulse O2 O2 Flow FiO2 Mean Ox Delivery Rate 08/31 06 97.2 56 14 108/66 08/31 0400 97.4 56 12 148/80 08/31 0400 94 Room Air 08/31 0000 97.6 62 18 158/82 08/31 0000 99 Room Air 08/31 0000 97.6 62 18 158/82 99 Room Air 08/30 2200 98.0 64 20 152/86 08/30 2131 59 160/90 08/30 2019 58 22 226/106 08/31 1999 98.4 64 17 148/92 08/30 2000 100 Room Air 08/30 1600 97.6 54 16 150/70 94 Room Air 08/30 1146 46 176/85 Intake & Output 08/31 1600 08/31 0400 08/30 1600 08/30 0400 08/29 1600 08/29 0400 Intake Total 505 1148 1006 288 694 1828 Output Total 250 500 850 200 900 Balance 255 648 156 420 -200 1000 Intake, IV 505 608 581 470 740 1950 Intake, Oral 0 540 425 150 600 Number 0 0 0 Bowel Movements Output, Urine 250 500 850 200 900 Patient 144 lb 144 lb Weight Weight Bed scale Measurement Method Physical Exam General Appearance: well developed/nourished, no apparent distress, alert Head: atraumatic, normal appearance Ears, Nose, Throat: normal ENT inspection Neck: normal inspection Respiratory: no respiratory distress, quiet respiration, lungs clear Cardiovascular: regular rate/rhythm, edema (none) Abdomen: soft, non-tender, no organomegaly Extremities: no edema Neurologic/Psychiatric: no motor/sensory deficits, awake, alert, oriented x 3, no asterixis Skin: intact, normal color Lymphatic: no anterior cervical latanya Current Medications: Current Medications Sig/Alissa Start time Last Medication Dose Route Stop Time Status Admin Amlodipine Besylate 5 MG DAILY 08/31 09 AC PO Amlodipine Besylate 10 MG ONCE ONE 08/30 2100 DC 08/30 PO 08/30 Buspirone HCl 15 MG BID 08/29 0900 AC 08/30 PO 2058 Dextrose/Water 1,000 ML Q20H 08/30 0200 DC 08/31 IV 08/31 1758 0452 Folic Acid 1 MG DAILY 08/29 0900 AC 08/30 PO 1033 Heparin Sodium 5,000 UNIT Q8 08/29 0600 AC 08/31 (Porcine) SC 0618 Hydralazine HCl 5 MG ONCE ONE 08/30 2100 DC IV 08/30 2100 Hydralazine HCl 5 MG ONCE ONE 08/30 2030 DC 08/30 IV 08/30 Lorazepam 1 MG Q8 08/30 1400 CAN PO Lorazepam 0 Q1P PRN 08/29 0115 AC IV Losartan Potassium 50 MG DAILY 08/29 0900 DC 08/30 PO 1146 Magnesium Chloride 64 MG BID 08/29 1715 AC 08/30 PO 2058 Metoclopramide HCl 10 MG ONCE ONE 08/30 1245 DC 08/30 IV 08/30 1246 1254 Metoprolol Succinate 100 MG DAILY 08/29 0900 AC 08/29 PO 0839 Multivitamins 1 TAB DAILY 08/29 0900 AC 08/30 PO 1033 Phosphate 250 MG BID 08/30 2100 AC 08/30 PO 2058 Phosphate 250 MG ONCE ONE 08/30 1145 DC 08/30 PO 08/30 1146 1300 Potassium Chloride 60 MEQ ONCE ONE 08/30 1930 DC 08/30 PO 08/30 193 1936 Potassium Phosphate 15 mMol ONE ONE 08/30 1000 DC 08/30 Dextrose/Water 250 ML IV 08/30 1404 1032 Sodium Chloride 3,000 MG TID 08/30 1400 AC 08/30 PO 2100 Thiamine HCl 250 MG DAILY 09/02 09 AC Sodium Chloride 100 ML IV 09/06 1001 Thiamine HCl 500 MG TID 08/30 1400 AC 08/30 Sodium Chloride 250 ML IV 09/01 1001 2100 Thiamine HCl 100 MG DAILY 08/29 0900 DC 08/30 PO 1034 Results Pertinent Lab Results: Laboratory Tests 08/31 08/31 08/30 0501 0112 2120 Chemistry Sodium (137 - 145 mmol/L) 125 L 123 L 123 L Potassium (3.5 - 5.1 mmol/L) 3.9 4.5 3.9 Chloride (98 - 107 mmol/L) 92 L 92 L 96 L Carbon Dioxide (22 - 30 mmol/L) 22 23 20 L Anion Gap (5 - 16) 11 7 7 BUN (9 - 20 mg/dL) 11 11 11 Creatinine (0.7 - 1.2 mg/dL) 0.5 L 0.5 L 0.4 L Estimated GFR (>60 ml/min) > 60 > 60 > 60 BUN/Creatinine Ratio (7 - 25 %) 22.0 27.5 H Glucose (65 - 99 mg/dL) 119 H Calcium (8.4 - 10.2 mg/dL) 8.7 Phosphorus (2.5 - 4.5 mg/dL) 2.6 Magnesium (1.6 - 2.3 mg/dL) 1.8 Total Bilirubin (0.2 - 1.3 mg/dL) 1.3 AST (17 - 59 U/L) 24 ALT (21 - 72 U/L) 38 Albumin (3.5 - 5.0 g/dL) 3.2 L Hematology CBC w Diff NO MAN DIFF REQ WBC (4.8 - 10.8 /CUMM) 7.5 RBC (4.70 - 6.10 /CUMM) 4.64 L Hgb (14.0 - 18.0 G/DL) 15.4 Hct (42 - 52 %) 45.6 MCV (80.0 - 94.0 FL) 98.4 H MCH (27.0 - 31.0 PG) 33.2 H MCHC (33.0 - 37.0 G/DL) 33.8 RDW (11.5 - 14.5 %) 12.2 Plt Count (130 - 400 /CUMM) 183 MPV (7.4 - 10.4 FL) 8.1 Gran % (42.2 - 75.2 %) 64.2 Lymphocytes % (20.5 - 51.1 %) 19.3 L Monocytes % (1.7 - 9.3 %) 13.3 H Eosinophils % (0 - 5 %) 2.8 Basophils % (0.0 - 2.0 %) 0.4 Absolute Granulocytes (1.4 - 6.5 /CUMM) 4.8 Absolute Lymphocytes (1.2 - 3.4 /CUMM) 1.4 Absolute Monocytes (0.10 - 0.60 /CUMM) 1.0 H Absolute Eosinophils (0.0 - 0.7 /CUMM) 0.2 Absolute Basophils (0.0 - 0.2 /CUMM) 0 08/30 08/30 08/30 08/30 08/29 1700 1309 0500 0010 2345 Chemistry Sodium (137 - 145 mmol/L) 125 L 121 L 120 L 120 L Potassium (3.5 - 5.1 mmol/L) 3.2 L 4.3 3.8 3.3 L Chloride (98 - 107 mmol/L) 91 L 82 L 84 L 84 L Carbon Dioxide (22 - 30 mmol/L) 23 28 27 27 Anion Gap (5 - 16) 11 11 9 9 BUN (9 - 20 mg/dL) 12 14 16 19 Creatinine (0.7 - 1.2 mg/dL) 0.5 L 0.6 L 0.6 L 0.7 Estimated GFR (>60 ml/min) > 60 > 60 > 60 > 60 BUN/Creatinine Ratio (7 - 25 %) 24.0 23.3 Glucose (65 - 99 mg/dL) 104 H 108 H Calcium (8.4 - 10.2 mg/dL) 8.9 8.8 Phosphorus (2.5 - 4.5 mg/dL) 2.5 3.1 2.2 L 2.2 L Magnesium (1.6 - 2.3 mg/dL) 1.6 1.9 2.0 2.0 Total Bilirubin (0.2 - 1.3 mg/dL) 2.2 H 2.6 H AST (17 - 59 U/L) 30 30 ALT (21 - 72 U/L) 36 41 Albumin (3.5 - 5.0 g/dL) 3.5 3.4 L Urines Urine Osmolality (300 - 1000 MOSM/KG) 585 Ur Random Creatinine (mg/dL) 93.0 Ur Random Sodium (30 - 90 mmol/L) 30 Ur Random Potassium (mmol/L) 43.3 Fraction Sodium Excret (<1% %) 0.2 08/29 08/29 08/29 08/29 08/29 2300 2040 1800 1628 1420 Chemistry Sodium (137 - 145 mmol/L) Cancelled 117 *L Cancelled 119 *L 126 L Potassium (3.5 - 5.1 mmol/L) Cancelled 3.6 Cancelled 3.1 L 2.1 *L Chloride (98 - 107 mmol/L) Cancelled 83 L Cancelled 82 L 100 Carbon Dioxide (22 - 30 mmol/L) Cancelled 27 Cancelled 28 19 L Anion Gap (5 - 16) Cancelled 7 Cancelled 9 7 BUN (9 - 20 mg/dL) Cancelled 18 Cancelled 20 16 Creatinine (0.7 - 1.2 mg/dL) Cancelled 0.6 L Cancelled 0.7 0.5 L Estimated GFR (>60 ml/min) > 60 > 60 > 60 Glucose (65 - 99 mg/dL) Cancelled 133 H Cancelled 104 H 73 Calcium (8.4 - 10.2 mg/dL) Cancelled 8.4 Cancelled 8.8 5.5 *L Phosphorus (2.5 - 4.5 mg/dL) Cancelled 2.0 L Cancelled 2.3 L 1.7 L Magnesium (1.6 - 2.3 mg/dL) Cancelled 1.8 Cancelled 1.9 1.3 L Total Bilirubin (0.2 - 1.3 mg/dL) Cancelled 2.6 H Cancelled 2.8 H 1.8 H Direct Bilirubin (< 0.4 mg/dL) 0.5 H AST (17 - 59 U/L) Cancelled 34 Cancelled 30 19 ALT (21 - 72 U/L) Cancelled 34 Cancelled 36 36 Albumin (3.5 - 5.0 g/dL) Cancelled 3.4 L Cancelled 3.5 1.9 L 08/29 08/29 08/29 08/29 1020 1020 1003 1000 Chemistry Sodium (137 - 145 mmol/L) 115 *L Cancelled Potassium (3.5 - 5.1 mmol/L) 3.5 Cancelled Chloride (98 - 107 mmol/L) 79 L Cancelled Carbon Dioxide (22 - 30 mmol/L) 27 Cancelled Anion Gap (5 - 16) 9 Cancelled BUN (9 - 20 mg/dL) 22 H Cancelled Creatinine (0.7 - 1.2 mg/dL) 0.6 L Cancelled Estimated GFR (>60 ml/min) > 60 Glucose (65 - 99 mg/dL) 112 H Cancelled Calcium (8.4 - 10.2 mg/dL) 8.7 Cancelled Phosphorus (2.5 - 4.5 mg/dL) 2.5 Cancelled Magnesium (1.6 - 2.3 mg/dL) 1.9 Cancelled Cancelled Total Bilirubin (0.2 - 1.3 mg/dL) 3.4 H Cancelled AST (17 - 59 U/L) 35 Cancelled ALT (21 - 72 U/L) 41 Cancelled Albumin (3.5 - 5.0 g/dL) 3.5 Cancelled Coagulation PT (9.4 - 12.5 SEC) 12.4 INR (0.90 - 1.17) 1.14 APTT (25 - 37 SEC) 28 Cancelled Serology Hepatitis A IgM Ab (NONREACTIVE) Cancelled NONREACTIVE Hep Bs Antigen (NONREACTIVE) Cancelled NONREACTIVE Hep B Core IgM Ab Conf (NONREACTIVE) Cancelled NONREACTIVE Hepatitis C Antibody (NONREACTIVE) Cancelled NONREACTIVE 08/29 08/29 0547 0239 Chemistry Sodium (137 - 145 mmol/L) 114 *L 114 *L Potassium (3.5 - 5.1 mmol/L) 3.0 L 3.3 L Chloride (98 - 107 mmol/L) 76 L 76 L Carbon Dioxide (22 - 30 mmol/L) 25 24 Anion Gap (5 - 16) 13 14 BUN (9 - 20 mg/dL) 22 H 23 H Creatinine (0.7 - 1.2 mg/dL) 0.6 L 0.6 L Estimated GFR (>60 ml/min) > 60 > 60 BUN/Creatinine Ratio (7 - 25 %) 36.7 H 38.3 H TSH (0.270 - 4.200 uIU/mL) 1.260 Free T4 (0.78 - 2.44 ng/dL) 2.42 Cortisol AM Sample (4.46 - 22.7 ug/dL) 15.3 Hematology CBC w Diff NO MAN DIFF REQ WBC (4.8 - 10.8 /CUMM) 9.2 RBC (4.70 - 6.10 /CUMM) 4.55 L Hgb (14.0 - 18.0 G/DL) 15.3 Hct (42 - 52 %) 44.0 MCV (80.0 - 94.0 FL) 96.8 H MCH (27.0 - 31.0 PG) 33.6 H MCHC (33.0 - 37.0 G/DL) 34.7 RDW (11.5 - 14.5 %) 12.3 Plt Count (130 - 400 /CUMM) 173 MPV (7.4 - 10.4 FL) 7.9 Gran % (42.2 - 75.2 %) 72.9 Lymphocytes % (20.5 - 51.1 %) 12.7 L Monocytes % (1.7 - 9.3 %) 13.2 H Eosinophils % (0 - 5 %) 0.8 Basophils % (0.0 - 2.0 %) 0.4 Absolute Granulocytes (1.4 - 6.5 /CUMM) 6.7 H Absolute Lymphocytes (1.2 - 3.4 /CUMM) 1.2 Absolute Monocytes (0.10 - 0.60 /CUMM) 1.2 H Absolute Eosinophils (0.0 - 0.7 /CUMM) 0.1 Absolute Basophils (0.0 - 0.2 /CUMM) 0 08/29 08/29 08/29 0123 0123 0120 Chemistry Lactic Acid (0.7 - 2.1 mmol/L) 1.3 Toxicology Urine Opiates Screen (>2000 NG/ML) < 100 Methadone Screen (>300 NG/ML) < 40 Barbiturate Screen (>200 NG/ML) < 60 Ur Phencyclidine Scrn (>25 NG/ML) < 6.00 Amphetamines Screen (>1000 NG/ML) < 100 U Benzodiazepines Scrn (>200 NG/ML) < 85 Urine Cocaine Screen (>300 NG/ML) < 50 Urine Cannabis Screen (>50 NG/ML) < 5.00 Urines Urinalysis MOD H Urine Color (YEL,AMB,STR) YEL Urine Clarity (CLEAR) HAZY H Urine pH (5.0 - 8.0) 6.0 Ur Specific [place] (1.001 - 1.035) 1.020 Urine Protein (NEG,<30 MG/DL) NEG Urine Ketones (NEG) 15 H Urine Nitrite (NEG) NEG Urine Bilirubin (NEG) NEG@ICTO Urine Urobilinogen (0.1 - 1.0 EU/dl) 4.0 H Ur Leukocyte Esterase (NEG) NEG Ur Microscopic SEDIMENT EXAMINED Urine RBC (0 - 5 /HPF) 3-5 Urine WBC (0 - 2 /HPF) 1-3 H Ur Epithelial Cells (NONE,FEW) FEW Urine Crystals Urine Bacteria (NEG/NONE) FEW H Urine Mucus (FEW,NONE) MOD H Urine Hemoglobin (NEG) TRACE-INTACT H Urine Osmolality (300 - 1000 MOSM/KG) 632 Ur Random Creatinine (mg/dL) 103.3 Ur Random Sodium (30 - 90 mmol/L) 36 Ur Random Potassium (mmol/L) 60.7 Fraction Sodium Excret (<1% %) 0.2 Urine Glucose (N MG/DL) NEG 08/28 2254 Chemistry Sodium (137 - 145 mmol/L) 110 *L Potassium (3.5 - 5.1 mmol/L) 3.6 Chloride (98 - 107 mmol/L) 69 L Carbon Dioxide (22 - 30 mmol/L) 24 Anion Gap (5 - 16) 17 H BUN (9 - 20 mg/dL) 25 H Creatinine (0.7 - 1.2 mg/dL) 0.7 Estimated GFR (>60 ml/min) > 60 BUN/Creatinine Ratio (7 - 25 %) 35.7 H Glucose (65 - 99 mg/dL) 126 H Serum Osmolality (285 - 295 MOSM/KG) 239 L Lactic Acid (0.7 - 2.1 mmol/L) 2.4 H Calcium (8.4 - 10.2 mg/dL) 9.5 Magnesium (1.6 - 2.3 mg/dL) 1.9 Total Bilirubin (0.2 - 1.3 mg/dL) 3.8 H AST (17 - 59 U/L) 46 ALT (21 - 72 U/L) 44 Alkaline Phosphatase (< 127 U/L) 65 Creatine Kinase (55 - 170 U/L) 142 Troponin I (<0.11 ng/ml) 0.02 Total Protein (6.3 - 8.2 g/dL) 7.2 Albumin (3.5 - 5.0 g/dL) 4.3 Globulin (1.9 - 4.2 gm/dL) 2.9 Albumin/Globulin Ratio (1.1 - 2.2 %) 1.5 Hematology CBC w Diff NO MAN DIFF REQ WBC (4.8 - 10.8 /CUMM) 11.3 H RBC (4.70 - 6.10 /CUMM) 5.23 Hgb (14.0 - 18.0 G/DL) 17.3 Hct (42 - 52 %) 50.5 MCV (80.0 - 94.0 FL) 96.4 H MCH (27.0 - 31.0 PG) 33.1 H MCHC (33.0 - 37.0 G/DL) 34.3 RDW (11.5 - 14.5 %) 12.1 Plt Count (130 - 400 /CUMM) 206 MPV (7.4 - 10.4 FL) 8.2 Gran % (42.2 - 75.2 %) 77.5 H Lymphocytes % (20.5 - 51.1 %) 10.3 L Monocytes % (1.7 - 9.3 %) 11.6 H Eosinophils % (0 - 5 %) 0.5 Basophils % (0.0 - 2.0 %) 0.1 Absolute Granulocytes (1.4 - 6.5 /CUMM) 8.7 H Absolute Lymphocytes (1.2 - 3.4 /CUMM) 1.2 Absolute Monocytes (0.10 - 0.60 /CUMM) 1.3 H Absolute Eosinophils (0.0 - 0.7 /CUMM) 0.1 Absolute Basophils (0.0 - 0.2 /CUMM) 0 Toxicology Serum Alcohol (<10 MG/DL) < 10.0 Imaging/Other Studies: CXR: No acute abnormality of chest.
--- NOTE | 2017-08-31 09:30 | PN- Resident CRCU ---
Kevin GEORGES,[facility] 08/31/17 0930: Subjective HPI/CRCU Issues: Hyponatremia in the setting of alcohol dependence and thiazid use. 24 Hour Events: The pt is more awake and oriented compare to yesterday. He is laying on bed looks relaxed and comfortable. He denies any other current active complains. Objective Vital Signs & I&O Last 8 Hrs of Vitals and I&O: Laboratory Tests 08/31 08/31 08/30 0501 0112 2120 Chemistry Sodium (137 - 145 mmol/L) 125 L 123 L 123 L Potassium (3.5 - 5.1 mmol/L) 3.9 4.5 3.9 Chloride (98 - 107 mmol/L) 92 L 92 L 96 L Carbon Dioxide (22 - 30 mmol/L) 22 23 20 L Anion Gap (5 - 16) 11 7 7 BUN (9 - 20 mg/dL) 11 11 11 Creatinine (0.7 - 1.2 mg/dL) 0.5 L 0.5 L 0.4 L Estimated GFR (>60 ml/min) > 60 > 60 > 60 BUN/Creatinine Ratio (7 - 25 %) 22.0 27.5 H Glucose (65 - 99 mg/dL) 119 H Calcium (8.4 - 10.2 mg/dL) 8.7 Phosphorus (2.5 - 4.5 mg/dL) 2.6 Magnesium (1.6 - 2.3 mg/dL) 1.8 Total Bilirubin (0.2 - 1.3 mg/dL) 1.3 AST (17 - 59 U/L) 24 ALT (21 - 72 U/L) 38 Albumin (3.5 - 5.0 g/dL) 3.2 L Hematology CBC w Diff NO MAN DIFF REQ WBC (4.8 - 10.8 /CUMM) 7.5 RBC (4.70 - 6.10 /CUMM) 4.64 L Hgb (14.0 - 18.0 G/DL) 15.4 Hct (42 - 52 %) 45.6 MCV (80.0 - 94.0 FL) 98.4 H MCH (27.0 - 31.0 PG) 33.2 H MCHC (33.0 - 37.0 G/DL) 33.8 RDW (11.5 - 14.5 %) 12.2 Plt Count (130 - 400 /CUMM) 183 MPV (7.4 - 10.4 FL) 8.1 Gran % (42.2 - 75.2 %) 64.2 Lymphocytes % (20.5 - 51.1 %) 19.3 L Monocytes % (1.7 - 9.3 %) 13.3 H Eosinophils % (0 - 5 %) 2.8 Basophils % (0.0 - 2.0 %) 0.4 Absolute Granulocytes (1.4 - 6.5 /CUMM) 4.8 Absolute Lymphocytes (1.2 - 3.4 /CUMM) 1.4 Absolute Monocytes (0.10 - 0.60 /CUMM) 1.0 H Absolute Eosinophils (0.0 - 0.7 /CUMM) 0.2 Absolute Basophils (0.0 - 0.2 /CUMM) 0 08/30 08/30 1700 1309 Chemistry Sodium (137 - 145 mmol/L) 125 L 121 L Potassium (3.5 - 5.1 mmol/L) 3.2 L 4.3 Chloride (98 - 107 mmol/L) 91 L 82 L Carbon Dioxide (22 - 30 mmol/L) 23 28 Anion Gap (5 - 16) 11 11 BUN (9 - 20 mg/dL) 12 14 Creatinine (0.7 - 1.2 mg/dL) 0.5 L 0.6 L Estimated GFR (>60 ml/min) > 60 > 60 BUN/Creatinine Ratio (7 - 25 %) 24.0 23.3 Phosphorus (2.5 - 4.5 mg/dL) 2.5 3.1 Magnesium (1.6 - 2.3 mg/dL) 1.6 1.9 Exam General Appearance: alert, awake, comfortable Head: atraumatic, normal appearance Neck: normal inspection, supple Respiratory: normal breath sounds, chest non-tender, no respiratory distress Cardiovascular: regular rate/rhythm Gastrointestinal: normal bowel sounds, soft, non-tender Extremities: no edema Cranial Nerves: normal hearing, normal speech, PERRL Current Medications: Current Medications Sig/Alissa Start time Last Medication Dose Route Stop Time Status Admin Amlodipine Besylate 5 MG DAILY 08/31 0900 AC 08/31 PO 1000 Amlodipine Besylate 10 MG ONCE ONE 08/30 2100 DC 08/30 PO 08/301 213 Buspirone HCl 15 MG BID 08/29 0900 AC 08/31 PO 1002 Dextrose/Water 1,000 ML Q20H 08/30 0200 DC 08/31 IV 08/31 1758 0452 Folic Acid 1 MG DAILY 08/29 0900 AC 08/31 PO 1002 Heparin Sodium 5,000 UNIT Q8 08/29 0600 AC 08/31 (Porcine) SC 0618 Hydralazine HCl 5 MG ONCE ONE 08/30 2100 DC IV 08/30 2100 Hydralazine HCl 5 MG ONCE ONE 08/30 2030 DC 08/30 IV 08/30 Lorazepam 0 Q1P PRN 08/29 0115 AC IV Losartan Potassium 50 MG DAILY 08/29 0900 DC 08/30 PO 1146 Magnesium Chloride 64 MG BID 08/29 1715 AC 08/31 PO 1001 Metoclopramide HCl 10 MG ONCE ONE 08/30 1245 DC 08/30 IV 08/30 1246 1254 Metoprolol Succinate 100 MG DAILY 08/29 0900 AC 08/29 PO 0839 Multivitamins 1 TAB DAILY 08/29 0900 AC 08/31 PO 1002 Phosphate 250 MG BID 08/30 2100 AC 08/31 PO 1001 Potassium Chloride 60 MEQ ONCE ONE 08/30 1930 DC 08/30 PO 08/30 1931 1936 Potassium Phosphate 15 mMol ONE ONE 08/30 1000 DC 08/30 Dextrose/Water 250 ML IV 08/30 1404 1032 Sodium Chloride 3,000 MG TID 08/30 1400 AC 08/31 PO 1002 Thiamine HCl 250 MG DAILY 09/02 0900 AC Sodium Chloride 100 ML IV 09/06 1001 Thiamine HCl 500 MG TID 08/30 1400 AC 08/31 Sodium Chloride 250 ML IV 09/01 1001 1001 Impression/Plan Impression/Problem List Impression: 72 year old male with > 50 pack-years history and chronic alcohol used as 6-8 beers for the past 50 years, who presented to ED after confusion and fall and was found to have a sodium of 110 for which he was admitted to ICU. At home, he is on Thiazide for HTN. The pt hs also associated hypokalemia and hypophosphatemia on admission. A&P #Resp * >50 pack-year history * currenly saturatin well on RA * He meets criteria for LDCT screening, can be done as out patinet. #ID * No sings or symptoms of active infection. #Cardio * Hx of HTN, was no thiazid at home * Hold thiazid given hyponatremia. * Continue amlodipin on discharge * Continue metoprolol #Hem: * stable, normal WBCs or anemia. #Metabolic: * Hyponatremia, most likely a mix of dehydration given thiazide and alcohol dependance, mixed with SIADH given high urine osmolarity and lowe serum osmolarity. * He continue to improve, Na this am is 125 * Continue PO NaCL as per renal * Repeat BEEP, Quentin, and Mg tomorrow. * Replete K, Mg and Quentin as needed. Currently on Quentin PO BID * Hx of alcohol dependancy, scoring low on CIWA. * IV ativan as per score, no scheduled ativan. * Continue high does thiamin #Alimentary: * Total bilirubin is down to normal today,from 3.8 on admission. * No transaminitis. * Abd U/S showed no evidence of hepatic steatosis, mass, cirrhosis or ascites. #Nephro * No nephrology issue, except hyponatremia. #Neuro * Was confused compare to yesterday. * Possible 2/2 hyponatremia, alcohol withdrow, & Ativan IV. * CAM score was negative for dilirum. * We will follow pt after Na is better corrected and Ativan is out of his system. * We will start pt on thiamin as for Wernicke encephalopathy -Diet: Mechanical soft and regular -DVT PPx ALPS & Hep SC -FC Problem List: 1. Hyponatremia Pain Ratin Tomorrow's Labs & Rationales: BEP, Quentin, Mg, Plan DVT/Prophylaxis: pharmacological Eusebio GEORGES,David 08/31/17 1148: Attending MD Review Statement Attending Sign Off Attending Cosign Statement: I have: examined this patient, reviewed [facility] EMR data, personally reviewd images, discussd w/resident/PA/QUARTZ MINER BLASTING, discussed mgmt plan w/sebastian, discussed mgmt plan w/CM, discussed mgmt plan w/pt, agreed w/resident/PA/QUARTZ MINER BLASTING, amended to note. Other Findings: Impression 72 year old man * hyponatremia in the setting of etoh dependence Plan -renal appreciated -fluid restriction, sodium tabs -can benefit from LDCT as outpt - please arrange with Dr. Barraza or myself on an outpatient basis DVT prophylaxis at all times TTS 35 min DG to GM
--- NOTE | 2017-08-31 10:54 | PN- Att Addend ---
Attending Addendum Attending Brief Note Patient looking much better, sitting in the chair much brighter. Vital signs are stable no fever. No new changes in physical. Sodium up to 125. Liver function tests improve. Patient is stable to be moved out of the intensive care unit today. Follow-up the labs closely continue the fluid restriction. Intake & Output 08/31 1600 08/31 0400 08/30 1600 08/30 0400 08/29 1600 08/29 0400 Intake Total 505 1148 1006 918 934 0961 Output Total 250 500 850 200 900 Balance 255 648 156 420 -200 1000 Intake, IV 505 608 581 766 710 0028 Intake, Oral 0 540 425 150 600 Number 0 0 0 Bowel Movements Output, Urine 250 500 850 200 900 Patient 144 lb 144 lb Weight Weight Bed scale Measurement Method Current Medications Sig/Alissa Start time Last Medication Dose Route Stop Time Status Admin Amlodipine Besylate 5 MG DAILY 08/31 09 AC 08/31 PO 1000 Amlodipine Besylate 10 MG ONCE ONE 08/30 2100 DC 08/30 PO 08/30 210 2131 Buspirone HCl 15 MG BID 08/29 09 AC 08/31 PO 1002 Dextrose/Water 1,000 ML Q20H 08/30 0200 DC 08/31 IV 08/31 1758 0452 Folic Acid 1 MG DAILY 08/29 09 AC 08/31 PO 1002 Heparin Sodium 5,000 UNIT Q8 08/29 06 AC 08/31 (Porcine) SC 0618 Hydralazine HCl 5 MG ONCE ONE 08/30 2100 DC IV 08/30 210 Hydralazine HCl 5 MG ONCE ONE 08/30 2030 DC 08/30 IV 08/30 Lorazepam 1 MG Q8 08/30 1400 CAN PO Lorazepam 0 Q1P PRN 08/29 0115 AC IV Losartan Potassium 50 MG DAILY 08/29 0900 DC 08/30 PO 1146 Magnesium Chloride 64 MG BID 08/29 1715 AC 08/31 PO 1001 Metoclopramide HCl 10 MG ONCE ONE 08/30 1245 DC 08/30 IV 08/30 1246 1254 Metoprolol Succinate 100 MG DAILY 08/29 0900 AC 08/29 PO 0839 Multivitamins 1 TAB DAILY 08/29 09 AC 08/31 PO 1002 Phosphate 250 MG BID 08/30 2100 AC 08/31 PO 1001 Phosphate 250 MG ONCE ONE 08/30 1145 DC 08/30 PO 08/30 1146 1300 Potassium Chloride 60 MEQ ONCE ONE 08/300 DC 08/30 PO 08/30 193 1936 Potassium Phosphate 15 mMol ONE ONE 08/30 1000 DC 08/30 Dextrose/Water 250 ML IV 08/30 1404 1032 Sodium Chloride 3,000 MG TID 08/30 1400 AC 08/31 PO 1002 Thiamine HCl 250 MG DAILY 09/02 0900 AC Sodium Chloride 100 ML IV 09/06 1001 Thiamine HCl 500 MG TID 08/30 1400 AC 08/31 Sodium Chloride 250 ML IV 09/01 1001 1001 Thiamine HCl 100 MG DAILY 08/29 0900 DC 08/30 PO 1034 Laboratory Tests 08/31/17 0501: Anion Gap 11, Estimated GFR > 60, Glucose 119 H, Calcium 8.7, Phosphorus 2.6, Magnesium 1.8, Total Bilirubin 1.3, AST 24, ALT 38, Albumin 3.2 L, CBC w Diff NO MAN DIFF REQ, RBC 4.64 L, MCV 98.4 H, MCH 33.2 H, MCHC 33.8, RDW 12.2, MPV 8.1, Gran % 64.2, Lymphocytes % 19.3 L, Monocytes % 13.3 H, Eosinophils % 2.8, Basophils % 0.4, Absolute Granulocytes 4.8, Absolute Lymphocytes 1.4, Absolute Monocytes 1.0 H, Absolute Eosinophils 0.2, Absolute Basophils 0 08/31/17 0112: Anion Gap 7, Estimated GFR > 60, BUN/Creatinine Ratio 22.0 08/30/17 2120: Anion Gap 7, Estimated GFR > 60, BUN/Creatinine Ratio 27.5 H 08/30/17 1700: Anion Gap 11, Estimated GFR > 60, BUN/Creatinine Ratio 24.0, Phosphorus 2.5, Magnesium 1.6 08/30/17 1309: Anion Gap 11, Estimated GFR > 60, BUN/Creatinine Ratio 23.3, Phosphorus 3.1, Magnesium 1.9 08/30/17 0500: Anion Gap 9, Estimated GFR > 60, Glucose 104 H, Calcium 8.9, Phosphorus 2.2 L, Magnesium 2.0, Total Bilirubin 2.2 H, AST 30, ALT 36, Albumin 3.5 08/30/17 0010: Anion Gap 9, Estimated GFR > 60, Glucose 108 H, Calcium 8.8, Phosphorus 2.2 L, Magnesium 2.0, Total Bilirubin 2.6 H, AST 30, ALT 41, Albumin 3.4 L 08/29/17 2345: Urine Osmolality 585, Ur Random Creatinine 93.0, Ur Random Sodium 30, Ur Random Potassium 43.3, Fraction Sodium Excret 0.2 08/29/17 2300: Sodium Cancelled, Potassium Cancelled, Chloride Cancelled, Carbon Dioxide Cancelled, Anion Gap Cancelled, BUN Cancelled, Creatinine Cancelled, Glucose Cancelled, Calcium Cancelled, Phosphorus Cancelled, Magnesium Cancelled, Total Bilirubin Cancelled, AST Cancelled, ALT Cancelled, Albumin Cancelled 08/29/17 2040: Anion Gap 7, Estimated GFR > 60, Glucose 133 H, Calcium 8.4, Phosphorus 2.0 L, Magnesium 1.8, Total Bilirubin 2.6 H, AST 34, ALT 34, Albumin 3.4 L 08/29/17 1800: Sodium Cancelled, Potassium Cancelled, Chloride Cancelled, Carbon Dioxide Cancelled, Anion Gap Cancelled, BUN Cancelled, Creatinine Cancelled, Glucose Cancelled, Calcium Cancelled, Phosphorus Cancelled, Magnesium Cancelled, Total Bilirubin Cancelled, AST Cancelled, ALT Cancelled, Albumin Cancelled 08/29/17 1628: Anion Gap 9, Estimated GFR > 60, Glucose 104 H, Calcium 8.8, Phosphorus 2.3 L, Magnesium 1.9, Total Bilirubin 2.8 H, Direct Bilirubin 0.5 H, AST 30, ALT 36, Albumin 3.5 08/29/17 1420: Anion Gap 7, Estimated GFR > 60, Glucose 73, Calcium 5.5 *L, Phosphorus 1.7 L, Magnesium 1.3 L, Total Bilirubin 1.8 H, AST 19, ALT 36, Albumin 1.9 L 08/29/17 1020: Hepatitis A IgM Ab Cancelled, Hep Bs Antigen Cancelled, Hep B Core IgM Ab Conf Cancelled, Hepatitis C Antibody Cancelled 08/29/17 1020: Anion Gap 9, Estimated GFR > 60, Glucose 112 H, Calcium 8.7, Phosphorus 2.5, Magnesium 1.9, Total Bilirubin 3.4 H, AST 35, ALT 41, Albumin 3.5, PT 12.4, INR 1.14, APTT 28, Hepatitis A IgM Ab NONREACTIVE, Hep Bs Antigen NONREACTIVE, Hep B Core IgM Ab Conf NONREACTIVE, Hepatitis C Antibody NONREACTIVE 08/29/17 1003: Sodium Cancelled, Potassium Cancelled, Chloride Cancelled, Carbon Dioxide Cancelled, Anion Gap Cancelled, BUN Cancelled, Creatinine Cancelled, Glucose Cancelled, Calcium Cancelled, Phosphorus Cancelled, Magnesium Cancelled, Total Bilirubin Cancelled, AST Cancelled, ALT Cancelled, Albumin Cancelled 08/29/17 1000: Magnesium Cancelled, APTT Cancelled 08/29/17 0547: Anion Gap 13, Estimated GFR > 60, BUN/Creatinine Ratio 36.7 H, TSH 1.260, Free T4 2.42, Cortisol AM Sample 15.3, CBC w Diff NO MAN DIFF REQ, RBC 4.55 L, MCV 96.8 H, MCH 33.6 H, MCHC 34.7, RDW 12.3, MPV 7.9, Gran % 72.9, Lymphocytes % 12.7 L, Monocytes % 13.2 H, Eosinophils % 0.8, Basophils % 0.4, Absolute Granulocytes 6.7 H, Absolute Lymphocytes 1.2, Absolute Monocytes 1.2 H, Absolute Eosinophils 0.1, Absolute Basophils 0 08/29/17 0239: Anion Gap 14, Estimated GFR > 60, BUN/Creatinine Ratio 38.3 H 08/29/17 0123: Urinalysis MOD H, Urine Color YEL, Urine Clarity HAZY H, Urine pH 6.0, Ur Specific [place] 1.020, Urine Protein NEG, Urine Ketones 15 H, Urine Nitrite NEG, Urine Bilirubin NEG@ICTO, Urine Urobilinogen 4.0 H, Ur Leukocyte Esterase NEG, Ur Microscopic SEDIMENT EXAMINED, Urine RBC 3-5, Urine WBC 1-3 H, Ur Epithelial Cells FEW, Urine Crystals , Urine Bacteria FEW H, Urine Mucus MOD H, Urine Hemoglobin TRACE-INTACT H, Urine Glucose NEG 08/29/17 0123: Urine Opiates Screen < 100, Methadone Screen < 40, Barbiturate Screen < 60, Ur Phencyclidine Scrn < 6.00, Amphetamines Screen < 100, U Benzodiazepines Scrn < 85, Urine Cocaine Screen < 50, Urine Cannabis Screen < 5.00, Urine Osmolality 632, Ur Random Creatinine 103.3, Ur Random Sodium 36, Ur Random Potassium 60.7, Fraction Sodium Excret 0.2 08/29/17 0120: Lactic Acid 1.3 08/28/17 2254: Anion Gap 17 H, Estimated GFR > 60, BUN/Creatinine Ratio 35.7 H, Glucose 126 H, Serum Osmolality 239 L, Lactic Acid 2.4 H, Calcium 9.5, Magnesium 1.9, Total Bilirubin 3.8 H, AST 46, ALT 44, Alkaline Phosphatase 65, Creatine Kinase 142, Troponin I 0.02, Total Protein 7.2, Albumin 4.3, Globulin 2.9, Albumin/ Globulin Ratio 1.5, CBC w Diff NO MAN DIFF REQ, RBC 5.23, MCV 96.4 H, MCH 33.1 H, MCHC 34.3, RDW 12.1, MPV 8.2, Gran % 77.5 H, Lymphocytes % 10.3 L, Monocytes % 11.6 H, Eosinophils % 0.5, Basophils % 0.1, Absolute Granulocytes 8.7 H, Absolute Lymphocytes 1.2, Absolute Monocytes 1.3 H, Absolute Eosinophils 0.1, Absolute Basophils 0, Serum Alcohol < 10.0 Microbiology 08/30 55 UPPER RESP: Surveillance Culture - COMP 08/30 55 GI: Surveillance Culture - COMP 08/29 49 BLOOD: Blood Culture - RES 08/30 39 BLOOD: Blood Culture - RES Microbiology 08/30 55 UPPER RESP: Surveillance Culture - COMP 08/30 55 GI: Surveillance Culture - COMP 08/29 49 BLOOD: Blood Culture - RES 08/30 39 BLOOD: Blood Culture - RES Vital Signs Date Time Temp Pulse Resp B/P B/P Pulse O2 O2 Flow FiO2 Mean Ox Delivery Rate 08/31 1000 58 149/80 08/31 0600 97.2 56 14 108/66 08/31 0400 97.4 56 12 148/80 08/31 0400 94 Room Air 08/31 0000 97.6 62 18 158/82 08/31 0000 99 Room Air 08/31 0000 97.6 62 18 158/82 99 Room Air 08/30 2200 98.0 64 20 152/86 08/30 2131 59 160/90 08/30 2018 58 22 226/106 08/31 1999 98.4 64 17 148/92 08/31 1999 100 Room Air 08/30 1600 97.6 54 16 150/70 94 Room Air 08/30 1146 46 176/85
[2017-09-01 06:39] LABS: ABSOLUTE BASOPHIL COUNT 0 /CUMM (0.0-0.2); ABSOLUTE EOSINOPHIL COUNT 0.8 /CUMM (0.0-0.7); ABSOLUTE LYMPH COUNT 1.7 /CUMM (1.2-3.4); ABSOLUTE MONOCYTE COUNT 0.8 /CUMM (0.10-0.60); BASOPHIL % 0.6 % (0.0-2.0); EOSINOPHIL % 10.3 % (0-5); GRANULOCYTE % 55.1 % (42.2-75.2); HEMATOCRIT 47.9 % (42-52); MEAN CORPUSCULAR HGB 33.5 PG (27.0-31.0); MEAN CORPUSCULAR HGB CONC 34.3 G/DL (33.0-37.0); MEAN CORPUSCULAR VOLUME 97.7 FL (80.0-94.0); MEAN PLATELET VOLUME 8.7 FL (7.4-10.4); PLATELET COUNT 197 /CUMM (130-400); RBC DISTRIBUTION WIDTH 11.9 % (11.5-14.5); RED BLOOD CELL CT 4.91 /CUMM (4.70-6.10); WHITE BLOOD CELL COUNT 7.4 /CUMM (4.8-10.8)
[2017-09-01 08:00] VITALS: BP 188/102
--- NOTE | 2017-09-01 11:29 | PN- Att Addend ---
Attending Addendum Attending Brief Note Mr. Deluna was interviewed and examined. His EMR was reviewed. He has no complaints today. He is afebrile. Heart rate is mildly bradycardic in the mid 50s. Blood pressure is elevated today at 188/102. He is in no acute distress. Chest exam is benign. Exam reveals a regular rate and rhythm. His abdomen is soft and nontender. His extremities show no edema. His CBC is stable. Serum sodium has risen to 130. We are continuing to monitor his electrolytes. Sodium continues to improve. New issues are elevated blood pressure and mild bradycardia. We have added losartan to his regimen to begin in the a.m. We will adjust or discontinue his metoprolol after monitoring his blood pressure.
--- NOTE | 2017-09-01 14:08 | PN- Resident CRCU ---
Subjective HPI/CRCU Issues: Patient is seen and examined at the bedside. He doesn't have any active complaints. He was oriented to time, place and person. He choked after taking the regular pills. We did change his diet to pure. Afterwards he felt frustrated about his diet. He requested that he wanted to try regular diet again. As he passed swallow evaluation, we will retry regular diet and if he again choked than change it to puree and do erswallow evaluation. Patient also requested for discharge. We discussed that 24 Hour Events: General medicine hold Objective Vital Signs & I&O Last 8 Hrs of Vitals and I&O: Temperature 98.2, pulse 55, blood pressure 188/102, Exam General Appearance: no apparent distress, alert, awake, comfortable Head: normal appearance Neck: supple Respiratory: chest non-tender, decreased breath sounds Cardiovascular: regular rate/rhythm Gastrointestinal: soft, non-tender Extremities: normal inspection, normal capillary refill, normal range of motion Current Medications: Current Medications Sig/Alissa Start time Last Medication Dose Route Stop Time Status Admin Amlodipine Besylate 10 MG DAILY 09/01 09 AC 09/01 PO 0845 Amlodipine Besylate 5 MG DAILY 08/31 09 DC 08/31 PO 1000 Buspirone HCl 15 MG BID 08/29 0900 AC 09/01 PO 0845 Folic Acid 1 MG DAILY 08/29 0900 AC 09/01 PO 0845 Heparin Sodium 5,000 UNIT Q8 08/29 0600 AC 09/01 (Porcine) SC 0646 Lorazepam 0 Q1P PRN 08/29 0115 DC IV Losartan Potassium 50 MG DAILY 09/02 09 DC PO Losartan Potassium 50 MG DAILY 09/01 1130 AC 09/01 PO 1344 Magnesium Chloride 64 MG BID 08/29 1715 AC 09/01 PO 0844 Metoprolol Succinate 100 MG DAILY 08/29 0900 AC 09/01 PO 0843 Multivitamins 1 TAB DAILY 08/29 0900 AC 09/01 PO 0843 Phosphate 250 MG BID 08/30 2100 AC 09/01 PO 0845 Sodium Chloride 3,000 MG TID 08/30 1400 AC 09/01 PO 0843 Thiamine HCl 250 MG DAILY 09/02 0900 AC Sodium Chloride 100 ML IV 09/06 1001 Thiamine HCl 500 MG TID 08/30 1400 DC 09/01 Sodium Chloride 250 ML IV 09/01 1001 0957 Impression/Plan Impression/Problem List Impression: Patient is a 72-year-old male chronic smoker, can't use disord, then we can er. Presented with confusion for and found to have hyponatremia in range of 110. Current problems- * Chronic severe euvolemic hyponatremia, possibly secondary to hydrochlorothiazide * Recurrent fall * Chronic COPD, secondary to smoking * Pulmonary nodule. Need outpatient note, a CT scan * Chronic smoker * Alcohol use disorder(8 -6, Beers daily) -mild ketoacidosis, hyperbilirubinemia * Hypertension. * Depression * Hypophosphatemia * Hypokalemia -improved Blood workup -sodium 130, potassium 4.4, chloride 96, carbon dioxide 24, anion gap 10, BUN 10, creatinine 0.6, glucose 119, phosphorus 3.1, magnesium 1.8. Assessment and plan - * We will continue tablet sodium, fluid restriction 1200 mL per day. * If serum sodium, improved to more than 130 then we will stop the sodium * Continue Neutra-Phos, magnesium supplementation * Patient's blood pressure is high. We will continue tablet losartan 50 milligrams daily, tablet amlodipine 10 milligrams daily, tablet metoprolol XL 100 milligrams daily. * TRC/nebulization * CODE STATUS-full code. * DVT prophylaxis-heparin * Diet -regular diet Problem List: 1. Hyponatremia Pain Ratin Tomorrow's Labs & Rationales: ICU bundle for f/u Plan DVT/Prophylaxis: pharmacological
[2017-09-01 16:34] VITALS: BP 162/86
--- NOTE | 2017-09-01 18:44 | Patient Discharge Instructions ---
Discharge Instructions General Discharge Information Special Instructions: - Please follow up with your primary care physician within 1-2 weeks of discharge. Inform your primary care physician of this admission to [facility]. - Continue your current medications per discharge instructions. - Please watch for these problems: Fever, Chills, Nausea, Vomiting, Shortness of Breath, Productive Cough, Chest Pain/Discomfort, Abdominal Pain, Active Bleeding or Bloody urine/stool. Diet Continue normal diet: Yes Activity Full Activity/No Limits: Yes Acute Coronary Syndrome Inclusion Criteria At DC or during hospital stay patient has or had the following: ACS DIAGNOSIS No Discharge Core Measures Meds if any: Prescribed or Continued at Discharge Meds if any: NOT Prescribed or Continued at Discharge Congestive Heart Failure Inclusion Criteria At DC or during hospital stay patient has or had the following: CHF DIAGNOSIS No Discharge Core Measures Meds if any: Prescribed or Continued at Discharge Meds if any: NOT Prescribed or Continued at Discharge Cerebrovascular accident Inclusion Criteria At DC or during hospital stay patient has or had the following: CVA/TIA Diagnosis No Discharge Core Measures Meds if any: Prescribed or Continued at Discharge Meds if any: NOT Prescribed or Continued at Discharge Venous thromboembolism Inclusion Criteria VTE Diagnosis No VTE Type NONE VTE Confirmed by (Test) NONE Discharge Core Measures - Per Current guidelines, there needs to be overlap - treatment for the first 5 days of Warfarin therapy. - If discharged on Warfarin prior to 5 days of - overlap therapy, the patient will need to be - assessed for post discharge needs including - *Post discharge parental anticoagulation - *Warfarin and/or parental anticoagulation education - *Follow up date to check INR post discharge At least 5 days overlap therapy as Inpatient No Meds if any: Prescribed or Continued at Discharge Note: Overlap Therapy is Warfarin and Anticoagulant Meds if any: NOT Prescribed or Continued at Discharge
[2017-09-01 19:06] VITALS: BP 140/70
[2017-09-01 21:39] VITALS: BP 176/90
[2017-09-01 22:00] VITALS: BP 176/90
[2017-09-02] VITALS (9 sets, daily range): BP systolic 140–190; BP diastolic 78–100
[2017-09-02] MEDS ORDERED: LOSARTAN POTASS50 M1 PO (08:35)
--- NOTE | 2017-09-02 09:14 | PN- Housestaff ---
Jorge L Guzman 09/02/17907: Subjective Follow-up For: Severe hyponatremia, history of falls, hypertension Complaints: no complaints Subjective: No overnight events. Patient had no specific complaint, breathing comfortably under room air. Requested help with getting home health aide. Review of Systems Constitutional: Reports: no symptoms. EENTM: Denies: blurred vision, visual changes. Cardiovascular: Reports: no symptoms. Respiratory: Reports: no symptoms. Gastrointestinal: Reports: no symptoms. Objective Last 24 Hrs of Vital Signs/I&O Vital Signs Date Time Temp Pulse Resp B/P B/P Pulse O2 O2 Flow FiO2 Mean Ox Delivery Rate 09/02 0905 52 180/88 09/02 0656 56 190/98 09/02 0600 98.0 56 20 190/98 09/02 0600 97.7 56 16 190/98 99 Room Air 09/02 0400 52 20 152/100 09/02 0342 52 152/100 09/02 0249 52 190/100 09/02 0147 52 20 190/100 09/02 0147 98.0 52 16 190/100 97 Room Air 09/02 0000 98.0 52 18 176/90 09/01 2200 50 20 176/90 09/01 2139 98.3 50 18 176/90 99 09/01 1906 97.7 52 18 140/70 99 09/01 1634 97.4 53 18 162/86 98 Room Air 09/01 1600 98 Room Air 09/01 1344 60 18 164/92 Intake & Output 09/02 1600 09/02 0800 09/02 0000 Intake Total 240 600 Output Total 300 400 Balance -60 200 Intake, Oral 240 600 Output, Urine 300 400 Physical Exam General Appearance: Alert, Oriented X3, Cooperative, No Acute Distress Skin: No Rashes, No Breakdown Skin Temp/Moisture Exam: Warm/Dry HEENT: Atraumatic Neck: Supple Cardiovascular: Regular Rate, No Murmurs Lungs: Clear to Auscultation, Normal Air Movement Neurological: Normal Speech, Normal Tone Current Medications: Current Medications Sig/Alissa Start time Last Medication Dose Route Stop Time Status Admin Amlodipine Besylate 10 MG DAILY 09/01 899 AC 09/02 PO 904 Buspirone HCl 15 MG BID 08/29 899 AC 09/02 PO 904 Folic Acid 1 MG DAILY 08/29 899 AC 09/02 PO 0905 Heparin Sodium 5,000 UNIT Q8 08/29 0600 AC 09/02 (Porcine) SC 0609 Hydralazine HCl 10 MG ONCE ONE 09/02 0230 CAN PO 09/02 0231 Hydralazine HCl 5 MG ONCE ONE 09/02 0215 DC IV 09/02 0216 Lorazepam 0 Q1P PRN 08/29 0115 DC IV Losartan Potassium 50 MG DAILY 09/02 09 DC PO Losartan Potassium 25 MG ONCE ONE 09/02 0245 DC 09/02 PO 09/02 0246 0249 Losartan Potassium 50 MG DAILY 09/01 1130 AC 09/02 PO 0656 Magnesium Chloride 64 MG BID 08/29 1715 AC 09/02 PO 0906 Metoprolol Succinate 100 MG DAILY 08/29 0900 AC 09/01 PO 0843 Multivitamins 1 TAB DAILY 08/29 0900 AC 09/02 PO 0905 Phosphate 250 MG BID 08/30 2100 AC 09/02 PO 0905 Sodium Chloride 3,000 MG TID 08/30 1400 AC 09/02 PO 0906 Thiamine HCl 250 MG DAILY 09/02 899 AC Sodium Chloride 100 ML IV 09/06 1001 Thiamine HCl 500 MG TID 08/30 1400 DC 09/01 Sodium Chloride 250 ML IV 09/01 1001 0957 Assessment/Plan Assessment: Assessment and Plan: 72 YO M, smoker (5 cigraettes/d for 50 yrs) with PMH of alcohol abuse, HTN and depression was brought to ED with chief complain of frequent fall in last two days and generalized weakness. Patient's friends and family was around him who helped him to give the information. Hyponatremia: -Possibly due to SIADH that can be induced with Paroxetine or could be multifactorial due to SIADH and dehydration as patient was using diuretics and he had low oral intake. 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 -Gentle IV hydration with normal saline. We will check his sodium level in 4 hours and if it's dropped with IV hydration then we will treat him for SIADH with fluid restriction. -We will check sodium level after every 4 hours. Na correction should not be more than 8-10 mEQ in next 24 hours. -We will avoid diuretics and paroxetine -Patient couldn't get with fluid restriction then we will do 3% normal saline. -Seizure precaution -Nephrology consult Alcohol detox: -We will keep the patient on CIWA protocol -Ativan 2mg every 6 hourly -Folic acid and vitamin B12 supplementation -Thiamine supplementation -Seizure precautions -Fall precaution -Social consult and PT eval for gait instability Hyperbilirubinemia: -Possibly due to alcohol abuse, considering normal liver enzymes may has compensated liver cirrhosis due to alcohol use. -We will check bili level again. -Upper quadrent USG can be done to look for his liver. Elevated hemoglobin and hematocrit: -Possibly due to secondary polycythemia considering his long smoking history. Right foot swelling: -Patient has right foot swelling and redness after the fall -X-ray right foot to rule out any fracture History of anxiety and depression: -Continue Ativan when necessary -Continue buspiron for depression History of hypertension: -Continue metoprolol and losartan DVT prophylaxis: Mechanical and subcutaneous heparin Code status: Full code Problem List: 1. Hyponatremia Repleting with sodium tablet TID If Na > 135 can stop sodium tabs after talking with nephrology 2. Hypertension Treated with 25mg losartan overnight 09/01\ Started amlodipine 09/02 am Continue to monitor 3. Need for home health care Patient requested help in requesting home health aide Pain Ratin Pain Location: NA Pain Goal: Remain pain free Pain Plan: No pain plan at this time Tomorrow's Labs & Rationales: CBC, BEP to follow up on hyponatremia Gianni Jensen MD 09/02/17 1302: Attending MD Review Statement Attending Statement Attending Statement: examined this patient, discuss w/resident/PA/SUPERIOR COURT JUDGE, agreed w/resident/PA/SUPERIOR COURT JUDGE, reviewed EMR data (avail), discussed with nursing, amended to note Attending Assessment/Plan: Mr. Deluna was interviewed and examined. His EMR was reviewed. He has ambulated with walker today. He has no complaints except the consistency of his diet. He has remained afebrile. He continues to be mildly bradycardic with a heart rate in the low 50s. Blood pressure is improved although his systolic BP is still high. He is in no acute distress. Heart and lung exams are benign. His CBC stable. Serum sodium has increased to 131. We are continuing to treat his hyponatremia with oral sodium chloride. We have discontinued his metoprolol due to his low heart rate and will continue to adjust his antihypertensives. We will advance his diet to regular and once again evaluate for dysphagia.
[2017-09-03] VITALS (7 sets, daily range): BP systolic 120–170; BP diastolic 60–96
--- NOTE | 2017-09-03 06:46 | PN- Housestaff ---
Subjective Follow-up For: Severe hyponatremia and hypertension Complaints: Rash on left back Subjective: Hospital day 6. Patient was seen and interviewed at the bedside. Patient was in good spirits but complains of pruritic rash on left back. Happy to be back on regular diet. Was able to ambulate yesterday. Still concerned about blood pressure. Review of Systems Constitutional: Reports: no symptoms. Skin: Reports: dryness (pruritic rash on left back). Objective Last 24 Hrs of Vital Signs/I&O Vital Signs Date Time Temp Pulse Resp B/P B/P Pulse O2 O2 Flow FiO2 Mean Ox Delivery Rate 09/03 599 98.0 54 16 156/96 96 Room Air 09/03 0200 98.1 56 18 170/90 97 Room Air 09/02 2152 97.9 60 20 140/80 95 09/02 1400 97.9 55 18 168/80 96 Room Air 09/02 1000 51 166/78 09/02 0959 51 166/78 09/02 0905 52 180/88 09/02 0900 52 180/88 Intake & Output 09/03 1600 09/03 0800 09/03 0000 Intake Total 438 Output Total 200 1250 Balance -200 -812 Intake, Oral 438 Output, Urine 200 1250 Physical Exam General Appearance: Alert, Oriented X3, Cooperative, No Acute Distress Skin: pruritic rash on left back Skin Temp/Moisture Exam: Warm/Dry HEENT: Atraumatic, PERRLA Cardiovascular: Regular Rate, Normal S1, Normal S2, No Murmurs Lungs: Clear to Auscultation, Normal Air Movement Abdomen: Soft, No Tenderness Neurological: Normal Speech, Strength at 5/5 X4 Ext, Normal Tone, Sensation Intact Current Medications: Current Medications Sig/Alissa Start time Last Medication Dose Route Stop Time Status Admin Amlodipine Besylate 10 MG DAILY 09/01 899 AC 09/02 PO 904 Buspirone HCl 15 MG BID 08/29 899 AC 09/02 PO 2023 Folic Acid 1 MG DAILY 08/29 899 AC 09/02 PO 904 Heparin Sodium 5,000 UNIT Q8 08/29 599 AC 09/03 (Porcine) SC 0530 Losartan Potassium 50 MG DAILY 09/01 1130 AC 09/02 PO 0656 Magnesium Chloride 64 MG BID 08/29 1715 AC 09/02 PO 2023 Metoprolol Succinate 100 MG DAILY 08/29 899 AC 09/01 PO 0843 Multivitamins 1 TAB DAILY 08/29 0900 AC 09/02 PO 0905 Phosphate 250 MG BID 08/30 2100 AC 09/02 PO 2023 Sodium Chloride 3,000 MG TID 08/30 1400 AC 09/02 PO 2023 Thiamine HCl 250 MG DAILY 09/02 0900 AC 09/02 Sodium Chloride 100 ML IV 09/06 1001 0952 Last 24 Hrs of Lab/Han Results Last 24 Hrs of Labs/Mics: Laboratory Tests 09/03/17 0720: Sodium Pending, Potassium Pending, Chloride Pending, Carbon Dioxide Pending, Anion Gap Pending, BUN Pending, Creatinine Pending, BUN/Creatinine Ratio Pending 09/02/17 0940: Anion Gap 11, Estimated GFR > 60, Glucose 142 H, Calcium 9.0, Phosphorus 3.9, Magnesium 1.7, Total Bilirubin 0.8, AST 23, ALT 36, Albumin 3.2 L Assessment/Plan Assessment: Assessment and Plan: 72 YO M, smoker (5 cigraettes/d for 50 yrs) with PMH of alcohol abuse, HTN and depression was brought to ED with chief complain of frequent fall in last two days and generalized weakness. Patient's friends and family was around him who helped him to give the information. Hyponatremia: -Possibly due to SIADH that can be induced with Paroxetine or could be multifactorial due to SIADH and dehydration as patient was using diuretics and he had low oral intake. 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 -We will check sodium level after every day. Na correction should not be more than 8-10 mEQ in next 24 hours. -We will avoid diuretics and paroxetine -Patient couldn't get with fluid restriction then we will do 3% normal saline. -Seizure precaution -Nephrology consult Alcohol detox: -We will keep the patient on CIWA protocol -Folic acid and vitamin B12 supplementation -Thiamine supplementation -Seizure precautions -Fall precaution -Social consult and PT eval for gait instability Hyperbilirubinemia: -Possibly due to alcohol abuse, considering normal liver enzymes may has compensated liver cirrhosis due to alcohol use. -We will check bili level again. -RUQ ultrasound done to assess liver. Liver sonographically normal, gallbladder contains one stone Elevated hemoglobin and hematocrit: -Possibly due to secondary polycythemia considering his long smoking history. Right foot swelling: -Patient has right foot swelling and redness after the fall -X-ray showed no fracture of the right foot History of anxiety and depression: -Continue Ativan when necessary -Continue buspiron for depression History of hypertension: -Continue metoprolol and losartan DVT prophylaxis: Mechanical and subcutaneous heparin Code status: Full code Problem List: 1. Hyponatremia Repleting with sodium tablet TID If Na > 135 can stop sodium tabs after talking with nephrology 2. Hypertension Treated with 25mg losartan overnight 09/01\ Started amlodipine 09/02 am Continue to monitor Problem List: 1. Hyponatremia 2. Hypertension Pain Ratin Pain Location: NA Pain Goal: Remain pain free Pain Plan: NA Tomorrow's Labs & Rationales: BEP trend hyponatremia CBC, BEP to follow up on hyponatremia
--- NOTE | 2017-09-03 11:15 | PN- Att Addend ---
Attending Addendum Attending Brief Note Patient seems alert in no acute distress Vital signs are stable no fever. No changes on physical examination. His sodium today is 131, his fluid restriction and had been taking sodium pills will check with nephrology and is satisfied with the sodium number then we'll start disposition plans. Intake & Output 09/03 1600 09/03 0400 09/02 1600 09/02 0400 09/01 1600 09/01 0400 Intake Total 100 438 660 600 610 730 Output Total 500 1250 300 400 600 550 Balance -400 -812 360 200 10 180 Intake, IV 250 250 Intake, Oral 100 438 660 600 360 480 Number 0 0 Bowel Movements Output, Urine 500 1250 300 400 600 550 Current Medications Sig/Alissa Start time Last Medication Dose Route Stop Time Status Admin Amlodipine Besylate 10 MG DAILY 09/01 899 AC 09/03 PO 0924 Buspirone HCl 15 MG BID 08/29 09 AC 09/03 PO 0923 Folic Acid 1 MG DAILY 08/29 0900 AC 09/03 PO 0922 Heparin Sodium 5,000 UNIT Q8 08/29 06 AC 09/03 (Porcine) SC 0530 Hydrocortisone 1 CARLEE BID 09/03 0900 AC 09/03 EXT 0923 Losartan Potassium 50 MG DAILY 09/01 1130 AC 09/03 PO 0922 Magnesium Chloride 64 MG BID 08/29 1715 AC 09/03 PO 0924 Metoprolol Succinate 100 MG DAILY 08/29 0900 AC 09/03 PO 0923 Multivitamins 1 TAB DAILY 08/29 0900 AC 09/03 PO 0923 Patient Medication 1 ED ONE ONE 09/03 1045 DC 09/03 Teaching ED 09/03 1046 1053 Phosphate 250 MG BID 08/30 2100 AC 09/03 PO 0923 Sodium Chloride 3,000 MG TID 08/30 1400 AC 09/03 PO 0923 Thiamine HCl 250 MG DAILY 09/02 09 AC 09/03 Sodium Chloride 100 ML IV 09/06 1001 0924 Laboratory Tests 09/03/17 0720: Anion Gap 9, Estimated GFR > 60, BUN/Creatinine Ratio 20.0 09/02/17 0940: Anion Gap 11, Estimated GFR > 60, Glucose 142 H, Calcium 9.0, Phosphorus 3.9, Magnesium 1.7, Total Bilirubin 0.8, AST 23, ALT 36, Albumin 3.2 L 09/01/17 0600: Anion Gap 10, Estimated GFR > 60, BUN/Creatinine Ratio 16.7, Phosphorus 3.1, Magnesium 1.8, CBC w Diff NO MAN DIFF REQ, RBC 4.91, MCV 97.7 H, MCH 33.5 H, MCHC 34.3, RDW 11.9, MPV 8.7, Gran % 55.1, Lymphocytes % 22.8, Monocytes % 11.2 H, Eosinophils % 10.3 H, Basophils % 0.6, Absolute Granulocytes 4.0, Absolute Lymphocytes 1.7, Absolute Monocytes 0.8 H, Absolute Eosinophils 0.8, Absolute Basophils 0 Vital Signs Date Time Temp Pulse Resp B/P B/P Pulse O2 O2 Flow FiO2 Mean Ox Delivery Rate 07/02 1040 98.1 56 20 120/80 98 Room Air 07/02 1009 66 20 134/60 96 Room Air 07/02 0924 67 134/62 07/02 0923 67 134/62 07/02 0922 67 134/62 07/02 0800 Room Air 07/02 0600 98.0 54 16 156/96 96 Room Air 07/02 0200 98.1 56 18 170/90 97 Room Air 07/01 2152 97.9 60 20 140/80 95 07/01 1400 97.9 55 18 168/80 96 Room Air
--- NOTE | 2017-09-03 12:33 | PN- Nephrology ---
Assessment/Plan Nephrology Assessment: Hyponatremia: Due to HCTZ, exacerbated by Beer intake. Cannot r/o underlying element of SIADH or reset osmostat. Counselled to fluid restrict (1200 cc/day), liberalize salt in diet, avoid HCTZ, and eliminate ETOH. He plans to continue drinking ETOH, so counelled to limit beer to 1-2 servings/day. Would continue salt tabs but can cut back to 1g PO BID. Suggest home home nursing to review meds and confirm he is not taking HCTZ at home. No objection to discharge from renal standpoint. Suggestion: lower sodium chloride tabs to 1g po bid 1200 cc/day fluid restriction avoid HCTZ or thiazides f/up with Dr Barraza as outpatient; he should have repeat labs done within 2- 4 weeks to recheck BMP David Jacobo MD Subjective Subjective: Pt feels well sodium stable at 131 Review of Systems: no edema, sob/chest pain no vomit/diarrhea no fever/chills Objective Vital Signs and I&Os Vital Signs Date Time Temp Pulse Resp B/P B/P Pulse O2 O2 Flow FiO2 Mean Ox Delivery Rate 09/03 1040 98.1 56 20 120/80 98 Room Air 07/ 1009 66 20 134/60 96 Room Air 07/ 0924 67 134/62 07/02 0923 67 134/62 07/02 0922 67 134/62 07/02 0800 Room Air 07/02 0600 98.0 54 16 156/96 96 Room Air 07/ 0200 98.1 56 18 170/90 97 Room Air 07/ 2152 97.9 60 20 140/80 95 07/01 1400 97.9 55 18 168/80 96 Room Air Intake & Output 07/ 1600 07/ 0400 07/ 1600 07/ 0400 09/01 1600 09/01 0400 Intake Total 100 438 660 600 610 730 Output Total 700 1250 300 400 600 550 Balance -600 -812 360 200 10 180 Intake, IV 250 250 Intake, Oral 100 438 660 600 360 480 Number 0 0 Bowel Movements Output, Urine 700 1250 300 400 600 550 Physical Exam: nad ctab s1 s2 soft NT no edema Current Medications: Current Medications Sig/Alissa Start time Last Medication Dose Route Stop Time Status Admin Amlodipine Besylate 10 MG DAILY 09/01 09 AC 09/03 PO 0924 Buspirone HCl 15 MG BID 08/29 09 AC 09/03 PO 0923 Folic Acid 1 MG DAILY 08/29 09 AC 09/03 PO 0922 Heparin Sodium 5,000 UNIT Q8 08/29 06 AC 09/03 (Porcine) SC 0530 Hydrocortisone 1 CARLEE BID 09/03 09 AC 09/03 EXT 0923 Losartan Potassium 50 MG DAILY 09/01 1130 AC 09/03 PO 0922 Magnesium Chloride 64 MG BID 08/29 1715 AC 09/03 PO 0924 Metoprolol Succinate 100 MG DAILY 08/29 09 AC 09/03 PO 0923 Multivitamins 1 TAB DAILY 08/29 09 AC 09/03 PO 0923 Patient Medication 1 ED ONE ONE 09/03 1045 DC 09/03 Teaching ED 09/03 1046 1053 Phosphate 250 MG BID 08/30 2100 AC 09/03 PO 0923 Sodium Chloride 3,000 MG TID 08/30 1400 AC 09/03 PO 0923 Thiamine HCl 250 MG DAILY 09/02 09 AC 09/03 Sodium Chloride 100 ML IV 09/06 1001 0924 Results Pertinent Lab Results: Laboratory Tests 09/03 09/02 09/01 0720 0940 0600 Chemistry Sodium (137 - 145 mmol/L) 131 L 131 L 130 L Potassium (3.5 - 5.1 mmol/L) 3.5 3.6 4.4 Chloride (98 - 107 mmol/L) 98 97 L 96 L Carbon Dioxide (22 - 30 mmol/L) 24 24 24 Anion Gap (5 - 16) 9 11 10 BUN (9 - 20 mg/dL) 12 13 10 Creatinine (0.7 - 1.2 mg/dL) 0.6 L 0.6 L 0.6 L Estimated GFR (>60 ml/min) > 60 > 60 > 60 BUN/Creatinine Ratio (7 - 25 %) 20.0 16.7 Glucose (65 - 99 mg/dL) 142 H Calcium (8.4 - 10.2 mg/dL) 9.0 Phosphorus (2.5 - 4.5 mg/dL) 3.9 3.1 Magnesium (1.6 - 2.3 mg/dL) 1.7 1.8 Total Bilirubin (0.2 - 1.3 mg/dL) 0.8 AST (17 - 59 U/L) 23 ALT (21 - 72 U/L) 36 Albumin (3.5 - 5.0 g/dL) 3.2 L Hematology CBC w Diff NO MAN DIFF REQ WBC (4.8 - 10.8 /CUMM) 7.4 RBC (4.70 - 6.10 /CUMM) 4.91 Hgb (14.0 - 18.0 G/DL) 16.4 Hct (42 - 52 %) 47.9 MCV (80.0 - 94.0 FL) 97.7 H MCH (27.0 - 31.0 PG) 33.5 H MCHC (33.0 - 37.0 G/DL) 34.3 RDW (11.5 - 14.5 %) 11.9 Plt Count (130 - 400 /CUMM) 197 MPV (7.4 - 10.4 FL) 8.7 Gran % (42.2 - 75.2 %) 55.1 Lymphocytes % (20.5 - 51.1 %) 22.8 Monocytes % (1.7 - 9.3 %) 11.2 H Eosinophils % (0 - 5 %) 10.3 H Basophils % (0.0 - 2.0 %) 0.6 Absolute Granulocytes (1.4 - 6.5 /CUMM) 4.0 Absolute Lymphocytes (1.2 - 3.4 /CUMM) 1.7 Absolute Monocytes (0.10 - 0.60 /CUMM) 0.8 H Absolute Eosinophils (0.0 - 0.7 /CUMM) 0.8 Absolute Basophils (0.0 - 0.2 /CUMM) 0
[2017-09-04] VITALS: BP 120/80
[2017-09-04 02:00] VITALS: BP 120/80
[2017-09-04 06:00] VITALS: BP 150/78
[2017-09-04 06:11] VITALS: BP 150/78
--- NOTE | 2017-09-04 06:42 | PN- Housestaff ---
Subjective Follow-up For: Hyponatremia and hypertension Complaints: no complaints Subjective: Hospital day 7. Patient was seen and interviewed at the bedside. Patient has no complaints aside from pruritic rash on back, waiting for medication help. He is okay with plan to go home today. Review of Systems Constitutional: Reports: no symptoms. Objective Last 24 Hrs of Vital Signs/I&O Vital Signs Date Time Temp Pulse Resp B/P B/P Pulse O2 O2 Flow FiO2 Mean Ox Delivery Rate 09/04 0611 97.7 52 22 150/78 98 Room Air / 0600 97.7 52 20 150/78 07/03 0200 98.7 56 18 120/80 07/03 0000 98.7 56 18 120/80 07/02 2223 98.7 56 18 120/80 97 Room Air 07/ 2000 98.2 58 20 138/90 07/02 1600 Room Air 07/02 1413 98.2 58 20 138/90 93 Room Air / 1040 98.1 56 20 120/80 98 Room Air / 1009 66 20 134/60 96 Room Air / 0924 67 134/62 07/02 0923 67 134/62 07/02 0922 67 134/62 Intake & Output / 1600 /03 0800 07/03 0000 Intake Total 120 300 Output Total 275 500 Balance -155 -200 Intake, Oral 120 300 Number 1 Bowel Movements Output, Urine 275 500 Physical Exam General Appearance: Alert, Oriented X3, Cooperative, No Acute Distress Skin: Pruritic rash on back, otherwise no rashes or breakdown Skin Temp/Moisture Exam: Warm/Dry HEENT: Atraumatic, PERRLA Neck: Supple Lymphatic: Cervical nl Cardiovascular: Regular Rate, Normal S1, Normal S2, No Murmurs Lungs: Clear to Auscultation, Normal Air Movement Abdomen: Soft, No Tenderness Neurological: Normal Speech, Strength at 5/5 X4 Ext, Normal Tone Extremities: No Edema, overgrown left big toenail Vascular: Normal Pulses, Pulses Symmetrical Orders CIWA Score (last 24 hrs): 2 Assessment/Plan Assessment: Assessment: 72-year-old male smoker with PMH of alcohol abuse, hypertension and depression who presented with chief complaint of frequent falls and generalized weakness. Laboratory results showed hyponatremia. Problem list: consumption, cannot rule out SIADH Plan: Continue to replete sodium until level reaches 135, decreased to 1g p.o. twice daily Fluid restriction to 1200 mL Avoids thiazide diuretics and HCTZ Have patient follow-up with Dr. Barraza outpatient within 3-4 weeks to check BEP Pending morning labs, plan is to discharge this afternoon Problem List: 1. Hyponatremia 2. Need for home health care 3. Hypertension Pain Ratin Pain Location: na Pain Goal: Remain pain free Pain Plan: na Tomorrow's Labs & Rationales: none (discharged)
--- NOTE | 2017-09-04 11:02 | Discharge Summary ---
Visit Information Visit Dates Admission Date: 08/28/17 Discharge Date: 09/04/17 Hospital Course Course Attending Physician: Bakari Barraza MD Primary Care Physician: Christian Benjamin MD Hospital Course: Hospital Course 72 year-old male smoker with past medical history of alcohol abuse hypertension and depression. Added to [facility] for history of frequent falls and generalized weakness. Patient was admitted to general medicine. Vitals showed fluctuating hypertension up to 200/100. Laboratory results showed severe hyponatremia. Amlodipine to control blood pressure. Sodium was repleted with sodium chloride tablets. Home medications were continued. Upon discharge, patient instructed to follow-up with Dr. Barraza in 3-4 weeks to repeat BEP. Admission Physical Exam General Appearance Alert, Cooperative, No Acute Distress Skin No Rashes Skin Temp/Moisture Exam: Warm/Dry Sepsis Skin Exam (color): Normal for Ethnicity HEENT Atraumatic, PERRLA, EOMI Neck Supple Cardiovascular Normal S1, Normal S2 Lungs Clear to Auscultation, Normal Air Movement Abdomen Soft, No Tenderness Neurological Normal Speech, Strength at 5/5 X4 Ext, Normal Tone, Sensation Intact Extremities No Edema, Bruises of right arm and hand, bruises on left arm, Right foot swelling and redness (likely due to fall) Admission Laboratory Leukocytosis WBC 11.3. Hyponatremic at 110. Problem List SERVICE DATE: 08/28/17 EXAM TYPE: CAT - CT CERV SPINE WO IV CONTRAST; CT HEAD WO IV CONTRAST IMPRESSION: No evidence for acute intracranial injury. Age-appropriate appearance of the brain. No evidence for acute injury to the cervical spine. Mild lower cervical spine degenerative change. SERVICE DATE: 08/28/17 EXAM TYPE: RAD - XRY-CHEST XRAY, TWO VIEWS IMPRESSION: No acute abnormality of chest. SERVICE DATE: 08/29/17- EXAM TYPE: RAD - XRY-ANKLE 3 OR MORE VIEWS R IMPRESSION: 1. No evidence of fracture, malalignment or joint effusion at the right ankle. 2. Plantar calcaneal enthesophyte is noted. SERVICE DATE: 08/29/17 EXAM TYPE: US - US-LIMITED ABDOMEN IMPRESSION: - Liver is sonographically normal. No evidence of hepatic steatosis, mass, cirrhosis or ascites. - Gallbladder contains a mobile, 0.6 cm calculus. Allergies: Coded Allergies: NO KNOWN ALLERGIES (12/21/11) Pertinent Lab Results: SERVICE DATE: 08/28/17 EXAM TYPE: CAT - CT CERV SPINE WO IV CONTRAST; CT HEAD WO IV CONTRAST IMPRESSION: No evidence for acute intracranial injury. Age-appropriate appearance of the brain. No evidence for acute injury to the cervical spine. Mild lower cervical spine degenerative change. SERVICE DATE: 08/28/17 EXAM TYPE: RAD - XRY-CHEST XRAY, TWO VIEWS IMPRESSION: No acute abnormality of chest. SERVICE DATE: 08/29/17- EXAM TYPE: RAD - XRY-ANKLE 3 OR MORE VIEWS R IMPRESSION: 1. No evidence of fracture, malalignment or joint effusion at the right ankle. 2. Plantar calcaneal enthesophyte is noted. SERVICE DATE: 08/29/17-1027 EXAM TYPE: US - US-LIMITED ABDOMEN IMPRESSION: - Liver is sonographically normal. No evidence of hepatic steatosis, mass, cirrhosis or ascites. - Gallbladder contains a mobile, 0.6 cm calculus. Disposition Summary Disposition Principal Diagnosis: Hyponatremia Additional Diagnosis: Hypertension Discharge Disposition: home health services Discharge Instructions General Discharge Information Code Status: Full Code Patient's Diet: Normal diet Patient's Activity: As tolerated Follow-Up Instructions/Appts: - Please follow up with your primary care physician within 1-2 weeks of discharge. Inform your primary care physician of this admission to [facility]. - Continue your current medications per discharge instructions. - Please watch for these problems: Fever, Chills, Nausea, Vomiting, Shortness of Breath, Productive Cough, Chest Pain/Discomfort, Abdominal Pain, Active Bleeding or Bloody urine/stool. Medications at Discharge Discharge Medications: Stop taking the following medications: Valsartan/Hydrochlorothiazide (Valsartan-Hctz 160-25 MG Tab) 160 MG-25 MG TABLET ORAL DAILY Qty = 30 Continue taking these medications: Paroxetine HCl (Paroxetine HCl) 20 MG TABLET 1 Tablet ORAL DAILY Qty = 30 Lorazepam (Lorazepam) 0.5 MG TABLET 1 Tablet ORAL DAILY NEEDED Qty = 30 Metoprolol Succinate (Metoprolol Succinate) 100 MG TAB.ER.24H 1 Tablet ORAL DAILY Qty = 30 Buspirone HCl (Buspirone HCl) 15 MG TABLET 1 Tablet ORAL TWICE DAILY Qty = 180 Start taking the following new medications: Losartan Potassium (Losartan Potassium) 50 MG TABLET 50 Milligram ORAL DAILY Qty = 30 No Refills Copies To: Sourav GEORGES,Christian Long
--- NOTE | 2017-09-04 13:23 | PN- Att Addend ---
Attending Addendum Attending Brief Note No new issues. Vital signs are stable no fever. No major changes on physical examination. His sodium this morning was 132. Per nephrology okay to start disposition plans. See the see EMR. Patient to follow in my office as an outpatient Intake & Output 09/04 1600 09/04 0400 09/03 1600 09/03 0400 09/02 1600 09/02 0400 Intake Total 120 300 680 438 660 600 Output Total 753 382 6850 1250 300 400 Balance -555 -200 -520 -812 360 200 Intake, IV 100 Intake, Oral 120 300 580 438 660 600 Number 1 Bowel Movements Output, Urine 097 653 2191 1250 300 400 Current Medications Sig/Alissa Start time Last Medication Dose Route Stop Time Status Admin Amlodipine Besylate 10 MG DAILY 09/01 899 AC 09/04 PO 0850 Buspirone HCl 15 MG BID 08/29 09 AC 09/04 PO 0850 Folic Acid 1 MG DAILY 08/29 09 AC 09/04 PO 0850 Heparin Sodium 5,000 UNIT Q8 08/29 06 AC 09/04 (Porcine) SC 0547 Hydrocortisone 1 CARLEE BID 09/03 0900 AC 09/04 EXT 0850 Losartan Potassium 50 MG DAILY 09/01 1130 AC 09/04 PO 0850 Magnesium Chloride 64 MG BID 08/29 1715 AC 09/04 PO 0850 Metoprolol Succinate 100 MG DAILY 08/29 0900 AC 09/04 PO 0850 Multivitamins 1 TAB DAILY 08/29 0900 AC 09/04 PO 0850 Phosphate 250 MG BID 08/30 2100 AC 09/04 PO 0850 Sodium Chloride 1,000 MG BID 09/03 2100 AC 09/04 PO 0850 Thiamine HCl 250 MG DAILY 09/02 09 AC 09/04 Sodium Chloride 100 ML IV 09/06 1001 1159 Laboratory Tests 09/04/17 0610: Anion Gap 13, Estimated GFR > 60, BUN/Creatinine Ratio 21.7 09/03/17 0720: Anion Gap 9, Estimated GFR > 60, BUN/Creatinine Ratio 20.0 09/02/17 0940: Anion Gap 11, Estimated GFR > 60, Glucose 142 H, Calcium 9.0, Phosphorus 3.9, Magnesium 1.7, Total Bilirubin 0.8, AST 23, ALT 36, Albumin 3.2 L Vital Signs Date Time Temp Pulse Resp B/P B/P Pulse O2 O2 Flow FiO2 Mean Ox Delivery Rate 07/ 0850 52 150/78 07/03 0850 52 150/78 07/03 0850 52 150/78 07/03 0611 97.7 52 22 150/78 98 Room Air 07/03 0600 97.7 52 20 150/78 07/03 0200 98.7 56 18 120/80 07/03 0000 98.7 56 18 120/80 07/02 2223 98.7 56 18 120/80 97 Room Air 07/1999 98.2 58 20 138/90 07/02 1600 Room Air 07/02 1413 98.2 58 20 138/90 93 Room Air
[2017-09-04 14:21] VITALS: BP 147/80
[2017-09-04] MEDS ORDERED: LOSARTAN POTASS50 M1 PO (14:41)
== END 2017-09-04 19:07 | disposition home health service (06) | DRG 641 ==
LOC: ERH 22:35 → CRI 23:34 → ERHI 23:34 → 2NA 23:34 → ENRESERV 23:54 → CRI 08-29 01:00 → ENTRNSPT 09-01 18:34 → 2NA 09-01 18:50 → EDTRNSPTSTS 09-01 18:53 → EDTRNSPT 09-01 18:53 → CMPTRNSPT 09-01 19:16 → ENPENDDIS 09-04 11:59 → 2NA 09-04 19:07
PROVIDERS: Emergency Medicine; Internal Medicine Adolescent Medicine; Internal Medicine Interventional Cardiology; Preventive Medicine Public Health & General Preventive Medicine; Student in an Organized Health Care Education/Training Program
DX: E87.6 Hypokalemia (principal); E22.2 Syndrome of inappropriate secretion of antidiuretic hormone; E87.2 Acidosis; F17.210 Nicotine dependence, cigarettes, uncomplicated; F10.20 Alcohol dependence, uncomplicated; T50.2X5A Adverse effect of carbonic-anhydrase inhibitors, benzothiadiazides and other diuretics, initial encounter; I10 Essential (primary) hypertension; F32.9 Major depressive disorder, single episode, unspecified; Z91.81 History of falling; W18.30XA Fall on same level, unspecified, initial encounter; Y92.039 Unspecified place in apartment as the place of occurrence of the external cause; F41.9 Anxiety disorder, unspecified; Y90.0 Blood alcohol level of less than 20 mg/100 ml; R91.1 Solitary pulmonary nodule; E83.39 Other disorders of phosphorus metabolism; J44.9 Chronic obstructive pulmonary disease, unspecified; R00.1 Bradycardia, unspecified; M79.89 Other specified soft tissue disorders
CPT/HCPCS: 2NAP; 84133; 84300; CCU; ERO; 36415; 36592; 71046; 73610-RT; 80307; 81001; 82436; 82570; 87040; 93005; 93010; 96360; 97110-GO; 97112-GO; 97116-GO; 97161-GP; 97530-GO; 99291; G0480; J0360; J1644; J2765; J3490; J7040; J7060; J7508